=== PATIENT | female | born 1990 | race Caucasian/White ===

== ENCOUNTER 2024-07-25 09:13 | Outpatient (CLI) | payer OTHER, SELFPAY | END 2024-07-25 09:14 | disposition home or self-care (01) | PROVIDERS: Visit Provider Obstetrics & Gynecology | DX: O26.851 Spotting complicating pregnancy, first trimester (principal); Z67.10 Type A blood, Rh positive | CPT/HCPCS: 84702; 86850; 86900; 86901 ==

== ENCOUNTER 2024-07-25 11:17 | Outpatient (CLI) | payer OTHER, SELFPAY | END 2024-07-25 11:18 | disposition home or self-care (01) | LOC: US 11:20 | PROVIDERS: Visit Provider Obstetrics & Gynecology | DX: O20.9 Hemorrhage in early pregnancy, unspecified (principal); Z3A.01 Less than 8 weeks gestation of pregnancy | CPT/HCPCS: 76817 ==

== ENCOUNTER 2024-08-11 12:44 | Outpatient (CLI) | payer OTHER, SELFPAY ==
--- NOTE | 2024-08-11 13:00 | CRLHL7_ITS ---
For Patients: As a result of the Cures Act, medical imaging exams and procedure reports are released immediately into your electronic medical record. You may view this report before your referring provider. If you have questions, please contact your health care provider. OB ULTRASOUND INDICATION: Dating and viability. TECHNIQUE: Real time grayscale imaging of the fetus was performed. Transvaginal. LMP: 06/14/2024. TIFFANY by LMP: 03/21/2025. GA: 8 w, 2 d. Previous US: Yes 07/25/2024. CRL: 1.6 cm. 8 w 0 d. TIFFANY: 03/23/2025. FHR: 169 BPM. Gestational sac: 3 cm. Appears within normal limits. Yolk sac: 3.7 mm. Appears within normal limits. Right ovary: Within normal limits. 2.7 x 1.3 x 1.7 cm. Left ovary: Within normal limits. 3.2 x 2.2 x 24 cm. CL. IMPRESSION: 1. Single living intrauterine with sonographic gestational age 8 weeks 0 days and sonographic due date 03/23/2025. 2. Right-sided subchorionic hemorrhage measures 1.1 x 1.2 x 2.3 cm. Abiodun Wen M.D. Diagnostic Radiologist [email or web address]/Dictated by: Abiodun Wen MD @ 08/12/2024 9:03:00 AM (Electronically Signed)
== END 2024-08-11 12:45 | disposition home or self-care (01) ==
LOC: US 12:47
PROVIDERS: Visit Provider Advanced Practice Midwife
DX: Z34.91 Encounter for supervision of normal pregnancy, unspecified, first trimester (principal); O20.9 Hemorrhage in early pregnancy, unspecified; Z3A.08 8 weeks gestation of pregnancy
CPT/HCPCS: 76817; 83021; 86592; 86703; 86704; 86706; 86762; 86787; 86803; 86850; 86900; 86901; 87086; 87340; 87491; 87591

== ENCOUNTER 2024-08-11 14:30 | Outpatient (CLI) | payer OTHER, SELFPAY ==
[2024-08-11 20:41] LABS: Chlamydia DNA Amplified* NOT DETECTED (No Detected); GC DNA Amplified* NOT DETECTED (No Detected)
== END 2024-08-11 14:31 | disposition home or self-care (01) ==
PROVIDERS: Visit Provider Physician Assistant
DX: Z34.91 Encounter for supervision of normal pregnancy, unspecified, first trimester (principal); Z3A.08 8 weeks gestation of pregnancy
CPT/HCPCS: 83020; 83021; 85660; 86592; 86703; 86704; 86706; 86762; 86787; 86803; 86850; 86900; 86901; 87086; 87340; 87491; 87591

== ENCOUNTER 2024-10-07 08:57 | Outpatient (CLI) | payer OTHER, SELFPAY | END 2024-10-07 08:58 | disposition home or self-care (01) | LOC: FRMREF 09:00 | PROVIDERS: Visit Provider Midwife | DX: Z34.82 Encounter for supervision of other normal pregnancy, second trimester (principal) | CPT/HCPCS: 81511 ==

== ENCOUNTER 2024-11-01 13:05 | Outpatient (CLI) | payer OTHER, SELFPAY ==
--- NOTE | 2024-11-01 13:00 | CRLHL7_ITS ---
For Patients: As a result of the Century Cures Act, medical imaging exams and procedure reports are released immediately into your electronic medical record. You may view this report before your referring provider. If you have questions, please contact your health care provider. OBSTETRICAL ULTRASOUND ??? ANATOMY SURVEY, 11/01/2024 INDICATION: screen. anatomy survey. CLINICAL HISTORY: LMP: 05/26/2024 TIFFANY by LMP: 03/21/2025 Gestational age: 20 weeks 0 days TECHNIQUE: Real-time abbott-scale transabdominal imaging of the fetus was performed. PREVIOUS ULTRASOUND: 08/11/2024, 07/25/2024. FINDINGS: position: Multiple positions. Cervix: Visualized Technique: Transabdominal Length of closed cervix: 3.9 cm Placenta position: Posterior Placenta tip to internal os: 7.9 cm Umbilical cord: 3-vessel cord Placental insertion: Central Amniotic fluid: 4.3 cm SDP (greater than/equal to 2 to less than 8 cm) ANATOMY SURVEY: Observed Structures Cerebellum: Yes; 2.0 cm, 20 weeks 4 days Cisterna magna: Yes; 4.8 mm Nuchal fold: Yes; 5.0 mm Lateral ventricle: Yes; 6.2 mm CSP: Yes Midline falx: Yes Choroid plexus: Yes Spine: Yes Stomach: Yes Abdominal cord insert: Yes Urinary bladder: Yes Kidneys: Yes Diaphragm: Yes Nose/lips: Yes Orbital view: Yes Profile: Yes Upper extremities: Yes Lower extremities: Yes Hands: Yes Feet: Yes 4-chamber heart: Yes LVOT: Yes RVOT: Yes 3VV: Yes 3VTV: Yes BIOMETRY BPD: 4.4 cm, 19 weeks 3 days, 26% HC: 16.6 cm, 19 weeks 2 days, 14% AC: 16.4 cm, 21 weeks 3 days, 86% FL: 3.2 cm, 20 weeks 0 days, 43% FL/AC: 19.67% HC/AC ratio: 1.01 heart rate: 150 bpm age by this ultrasound: 20 weeks 0 days TIFFANY by this ultrasound: 03/20/2025 Estimated weight: 363 grams (0 pounds 13 ounces) Percentile by TIFFANY: 78% IMPRESSION: 1) Concordance of clinical and sonographic dating. 2) Normal anatomic survey. ABIODUN MORIN M.D. Diagnostic Radiologist [email or web address] Transcribed: 10:[address]/Dictated by: Abiodun Morin MD @ 11/02/2024 6:37:00 AM (Electronically Signed)
== END 2024-11-01 13:06 | disposition home or self-care (01) ==
LOC: US 13:05
PROVIDERS: Visit Provider Midwife
DX: Z34.92 Encounter for supervision of normal pregnancy, unspecified, second trimester (principal); Z3A.20 20 weeks gestation of pregnancy
CPT/HCPCS: 76805; 87086

== ENCOUNTER 2024-12-26 15:30 | Outpatient (CLI) | payer OTHER, SELFPAY | END 2024-12-26 15:31 | disposition home or self-care (01) | LOC: NFLDREF 12-28 17:27 | PROVIDERS: Visit Provider Advanced Practice Midwife | DX: Z34.82 Encounter for supervision of other normal pregnancy, second trimester (principal) | CPT/HCPCS: 86592 ==

== ENCOUNTER 2025-01-10 09:17 | Emergency (ER) | payer OTHER, SELFPAY ==
--- OUTSIDE RECORDS SUMMARY | 2024-04-14 04:30 | XMS_ITS ---
Author Organization [facility] e Address [address] [place] [address] Care Team Providers Care Oral Surgery Technician Name Role Phone None, No PCP Primary Care Provider Julianne Fink Unavailable [phone] REASON FOR VISIT LMP: 02/18 Encounters Encounter Location Date Provider Diagnosis [facility] [address] [place] [address] 04/14/2024 Julianne Burnette Plan Of Treatment No Information Progress Notes * Linnea KEYDOB: 3 (34 yo F)Acc No.[id number]:04/14/2024 Patient: Linnea OLIVAS Provider: Marine Burnette CNM :1990 A ge:33 Y S ex:Female Date:04/14/2024 Address:[address] [place], [place] [id number] Pcp:No PCP None Subjective: * Chief Complaints: * 1 . LMP: 02/18. * Medical History: Objective: * Vitals: Assessment: Plan: * Treatment: * Images: Billing Information: * Visit Code: * Procedure Codes: * Electronic signature of Chelsea Burnette CNM on 01/10/2025 at 10:22 AM CDT Sign off status: Pending * Provider: Marine Burnette CNM Date: 06/14/2023 Generated for Printi ng/Faxing/eTransmitting on: 0 01/10/2025 10:22 AM CDT
--- OUTSIDE RECORDS SUMMARY | 2024-04-14 05:00 | XMS_ITS ---
Author Organization [facility] [place] [facility] e Address [address] [place] [address] Care Team Providers Care Sheet Metal Welder Name Role Phone None, No PCP Primary Care Provider Julianne Fink Unavailable [phone] Encounters Encounter Location Date Provider Diagnosis [facility] [address] [place] [address] 04/14/2024 Julianne Burnette Plan Of Treatment No Information Progress Notes * Linnea KEYDOB: 3 (34 yo F)Acc No.[id number]:04/14/2024 Patient: Linnea OLIVAS Provider: Marine Burnette CNM :1990 A ge:33 Y S ex:Female Date:04/14/2024 Address:[address] [place], [place] [id number] Pcp:No PCP None Subjective: * Chief Complaints: * * Medical History: Objective: * Vitals: Assessment: Plan: * Treatment: Care Plan: * Problems: * Images: Billing Information: * Visit Code: * Procedure Codes: * Electronic signature of Chelsea Burnette CNM on 01/10/2025 at 10:22 AM CDT Sign off status: Pending * Provider: Marine Burnette CNM Date: 06/14/2023 Generated for Igori ng/Faxing/eTransmitting on: 0 01/10/2025 10:22 AM CDT
--- OUTSIDE RECORDS SUMMARY | 2024-04-14 05:30 | XMS_ITS ---
Author Organization [facility] e Address [address] [place] [address] Care Team Providers Care Lens Shaper Grinder Name Role Phone None, No PCP Primary Care Provider Julianne Fink Unavailable [phone] REASON FOR VISIT LMP: 02/18 Encounters Encounter Location Date Provider Diagnosis [facility] [address] [place] [address] 04/14/2024 Julianne Burnette Plan Of Treatment No Information Progress Notes * Linnea KEYDOB: 3 (34 yo F)Acc No.[id number]:04/14/2024 Patient: Linnea OLIVAS Provider: Marine Burnette CNM :1990 A ge:33 Y S ex:Female Date:04/14/2024 Address:[address] [place], [place] [phone] Pcp:No PCP None Subjective: * Chief Complaints: * 1 . LMP: 02/18. * Medical History: Objective: * Vitals: Assessment: Plan: * Treatment: * Images: Billing Information: * Visit Code: * Procedure Codes: * Electronic signature of Chelsea Burnette CNM on 01/10/2025 at 10:21 AM CDT Sign off status: Pending * Provider: Marine Burnette CNM Date: 06/14/2023 Generated for Printi ng/Faxing/eTransmitting on: 0 01/10/2025 10:21 AM CDT
[2025-01-10 09:32] VITALS: BP 119/73; PULSE 109; RESP 18; TEMP 36.4; O2SAT 97; BMI 31.5
--- NOTE | 2025-01-10 10:00 | ED.GENADULT ---
HPI - General Adult General Chief complaint: Shortness of Breath/Dyspnea Stated complaint: 30weeks - OB sent her to ER Time Seen by Provider: 01/10/25 10:00 History of Present Illness HPI narrative: patient is 30 weeks PG and yesterday feeling SOB and noticed the lips to be pale and concerned thought lips looked blue. patient continues to feel sob. cough congestion, erickson , body aches. tested + COVID last night home test. has had stomach cramps like diarrhea. last episode was Thursday night. 34-year-old woman presenting to the emergency department apparently diagnosed with COVID. This was a home test which was immediately positive she reports. I was last night. Four days ago did have some stomach cramps with a lot of diarrhea. Has had some intermittent cramping since. Yesterday white after bath remaining in noting a little bit of blood. She is not sure if the cramping is consistent with what ever she had going on or whether that is related to the . She is feeling baby move. Started feeling more short of breath yesterday and noted her lips to be little blue or alternately pale. Is had some head congestion as well. Been treating with recommended loratadine. Body aches as well. No measured fever. Called in to triage line and recommended to be assessed for oxygen level and to receive medication for COVID Related Data Home Medications ?Medication ?Instructions ?Recorded ?Confirmed [id number]-[id number] 3 fatty no.1 27 1 cap PO DAILY 08/11/24 01/11/25 mg-1 mg-300 mg capsule choline 250 mg tablet 265 mg PO QDAY 08/11/24 01/11/25 doxylamine succinate 25 mg tablet 25 mg PO QHS PRN 08/11/24 01/11/25 (Unisom (doxylamine)) magnesium 200 mg tablet 200 mg PO QDAY 09/07/24 01/11/25 famotidine 20 mg tablet (Pepcid) 20 mg PO QDAY 11/30/24 01/11/25 acetaminophen 500 mg tablet 500 mg PO Q6H PRN 01/11/25 01/11/25 (Tylenol Extra Strength) Previous Rx's ?Medication ?Instructions ?Recorded nirmatrelvir 300 mg (150 mg See Rx Instructions PO .COMPLEX #6 01/10/25 x2)-ritonavir 100 mg tablet,dose tabs pack (Paxlovid) Allergies Allergy/AdvReac Type Severity Reaction Status Date / Time No Known Drug Allergies Allergy Verified 01/11/25 15:18 Review of Systems Status of ROS: Reports: 6 or more systems reviewed and unremarkable except as noted in History and below [facility] Medical History Rash ?R21 - Rash and other nonspecific skin eruption (ICD-10) Anemia ?D64.9 - Anemia, unspecified (ICD-10) Migraines ?G43.909 - Migraine, unspecified, not intractable, without status migrainosus (ICD-10) Family History Other Breast cancer Chronic mental illness Diabetes Heart disease Ovarian cancer Thyroid disease Social History Narrative: SOCIAL HISTORY: 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 Marital status: . Oriental Orthodox/cultural needs: no. Chemical or radiation exposure: no. Pre- tobacco use: no. Pre- alcohol use: no. Current tobacco use: no. Current alcohol use: no. Recreational drug use: no. Dietary restrictions: no. Blood transfusion acceptable in an emergency: yes. PSYCHOSOCIAL HISTORY: History of depression or currently depressed: Denies. Current or past physical, emotional, or sexual mistreatment: Denies. Problems that will make it hard to make it to appointments: Denies. What is your current living situation?: I presently have a place to live In the past 12 months, utilities in danger of being shut off: no In past 12 months, lack of transportation kept you from medical appts, meetings, work, or getting things needed for daily living: no In the past 12 mos, have been you worried that your food would run out before you had money to buy more?: never true In the past 12 mos, the food you bought just didn't last and you didn't have money to buy more?: never true Smoking Status: Never smoker How often do you have a drink containing alcohol: never How often do you have six or more drinks on one occasion: Never AUDIT-C Alcohol total score: 0 Non-prescribed substance use: denies use How often does anyone, including family, friends and others, physically hurt you: never How often does anyone, including family, friends and others, insult or talk down to you: never How often does anyone, including family, friends and others, threaten you with harm: never How often does anyone, including family, friends and others, scream or curse at you: never Exam Narrative: Exam Narrative: Pleasant. NAD. Sounds congested. Appears tired. No facial swelling or erythema. Lungs are clear. Heart is in elevated rate and regular rhythm. Abdomen is soft appropriately gravid and nontender; atrial uncomfortable to palpation but pelvis. Extremities are well perfused. Lips are normal color at this point. Const: Vital Signs, click to edit/add: Vital Signs - 24 hr 01/10/25 09:32 01/10/25 10:12 01/10/25 10:12 Temperature 97.5 F L Pulse Rate [Pulse Oximeter] 109 H 105 H Respiratory Rate 18 Blood Pressure [Ri ght Upper Arm] 119/73 Pulse Oximetry 97 98 98 Oxygen Delivery Me thod Room Air Room Air 01/10/25 10:20 01/10/25 12:07 Temperature Pulse Rate [Pulse Oximeter] 99 88 Respiratory Rate 20 Blood Pressure [Ri ght Upper Arm] 122/96 H Pulse Oximetry 98 Oxygen Delivery Me thod Room Air Documenting provider has reviewed patient's vital signs: yes Course Vital Signs Vital signs: Initial Vital Signs Temperature 97.5 F L 01/10/25 09:32 Temperature Source Temporal Artery Scan 01/10/25 09:32 Pulse Rate 109 H 01/10/25 09:32 Respiratory Rate 18 01/10/25 09:32 Blood Pressure 119/73 01/10/25 09:32 Blood Pressure Mean 88 01/10/25 09:32 Blood Pressure Position Sitting 01/10/25 09:32 Pulse Oximetry 97 01/10/25 09:32 Oxygen Delivery Method Room Air 01/10/25 09:32 Vital Signs Temperature 97.5 F L 01/10/25 09:32 Pulse Rate 109 H 01/10/25 09:32 Respiratory Rate 18 01/10/25 09:32 Blood Pressure 119/73 01/10/25 09:32 Pulse Oximetry 97 01/10/25 09:32 Oxygen Delivery Method Room Air 01/10/25 09:32 Temperature 97.5 F L 01/10/25 09:32 Pulse Rate 88 08/19/25 12:07 Respiratory Rate 20 01/10/25 12:07 Blood Pressure 122/96 H 01/10/25 12:07 Pulse Oximetry 98 01/10/25 12:07 Oxygen Delivery Method Room Air 01/10/25 12:07 Medical Decision Making MDM Narrative Medical decision making narrative: Does not sound as though we need to re screen COVID. She is quite clear in her certain diagnosis. There has also been a flare in the community. Obstetrics would like to do a nonstress testing will be arriving to do so. Will continue to monitor oximetry. Anticipate treatment with Paxlovid. No further workup other than maybe a urinalysis I think at this time. Reassuring. Nonstress test Urinalysis was pending time departure from the emergency department. It did show what looked to be blood. I did discuss this with Linnea after she has left the emergency department. This looks to be more inflammatory in presentation than actually infectious. Micro with 2-5 white cells but greater than 100 red cells. Aminata does believe that this is definitely from the urine and not vaginal/uterine. There has been no recent intercourse. Did prescribe Paxlovid particularly as . One does wonder if this could be related to COVID. Discussed that might benefit from blood draw including basic and CBC at least for a baseline. She does have close follow-up tomorrow. Recommending quarantine/masking for at least 10 days from 1st day of infection. See patient discharge plan for further discussion Will be sending in a prescription of Paxlovid for you to the pharmacy. Be seen for increasing and persistent shortness of breath, increasing fever, intractable vomiting. Focus on hydration as usual. I will call you if your urinalysis requires discussion. Medical Records Medical records reviewed: Yes I reviewed the patient's medical records Lab Data Lab results reviewed: Yes I reviewed the patient's lab results Labs: Lab Results 01/10/25 Range/Units Unknown Urine Color Brown A (Yellow) Urine Appearance Cloudy A (Clear) Urine pH 7.0 (5.0-8.5) Ur Specific Concord 1.025 (1.000-1.030) Urine Protein 2+ A (Negative) Urine Glucose (UA) Negative (Negative) Urine Ketones Trace A (Negative) Urine Blood 3+ A (Negative) Urine Nitrite Negative (Negative) Urine Bilirubin Negative (Negative) Urine Urobilinogen 0.2 (0.2-1.0) Ur Leukocyte Esterase Negative (Negative) Urine RBC >100 A (0-2) Urine WBC 2-5 (0-5) Ur Squamous Epith Cells Few (None-Few) Urine Bacteria Few A (None) Urine Mucus Few A (None) Discharge Plan Discharge Clinical Impression: COVID, Abdominal cramping Patient Disposition: Home, Self-Care Condition: Stable Additional Instructions: Will be sending in a prescription of Paxlovid for you to the pharmacy. Be seen for increasing and persistent shortness of breath, increasing fever, intractable vomiting. Focus on hydration as usual. I will call you if your urinalysis requires discussion. Prescriptions: New Paxlovid 300 mg (150 mg x 2)-100 mg tablets,dose pack See Rx Instructions PO .COMPLEX Qty: 6 0RF Rx Instructions: take TWO 150 mg tablets of nirmatrelvir with ONE 100 mg tablet of ritonavir twice daily for 5 days No Action magnesium 200 mg tablet 200 mg PO QDAY SZK-evvp-QN-omega 3 fatty no.1 27-1-300 mg capsule 1 cap PO DAILY choline 250 mg tablet 265 mg PO QDAY Unisom (doxylamine) 25 mg tablet 25 mg PO QHS PRN famotidine [Pepcid] 20 mg tablet 20 mg PO QDAY acetaminophen [Tylenol Extra Strength] 500 mg tablet 500 mg PO Q6H PRN Follow Up/Referrals: Provider,Not a Local [Primary Care Provider, Family Practice] Stand Alone Forms: [employer] Info Instructions
[2025-01-10 10:12] VITALS: PULSE 105; O2SAT 98
[2025-01-10 10:20] VITALS: PULSE 99
--- OUTSIDE RECORDS SUMMARY | 2025-01-10 10:22 | XMS_ITS | Patient Health Record ---
Author Organization [facility] e Address [address] [place] [address] Care Team Providers Care Transit Manager Name Role Phone None, No PCP Primary Care Provider Radha Ag Unavailable [phone] Julianne Burnette Unavailable [phone] Reason For Referral No Information Plan Of Treatment No Information Insurance Providers Payer Name Payer Address Payer Phone Subscriber Number Group Number Insured Name Patient Relationship to Insured Coverage Start Date Coverage End Date UMR (INS BILL) [address] [address] [place] [address] [id number] Linnea Key Self - patient is the insured
--- OUTSIDE RECORDS SUMMARY | 2025-01-10 10:22 | XMS_ITS | Encounter Summary ---
Author Organization [facility] Address [address] [place] [address] Care Team Providers Care Telegraph Service Clerk Name Role Phone No Ref-Primary, Physician Primary Care Provider Abiodun Arambula MD Unavailable [phone] Florentin Ochoa MD Unavailable [phone] Encounter Details Date Type Department Care Team (Late st Contact Info) Description 04/19/2024 [facility] Medical Advice [facility] [place] [address] [place] [address] Abiodun Arambula MD [address] [place], [place] [id number] Social History Tobacco Use Types Packs/Day Years Used Date Smoking Tobacco: Never Smokeless Tobacco: Never Alcohol Use Standard Drinks/Week Comments Yes 0 (1 standard drink = 0.6 oz pur e alcohol) Adolescent Education Answer Date Record ed Getting School Help Needed Not on file 10/22 Comments No Sex and Gender Information Value Date Recorded Sex Assigned at Not on file Legal Sex Female 8:08 PM 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 Re: missed ab. Chaparrita Moon RN CLE CALIBRATION ENGINEER documented in this encounter Plan of Treatment Not on file documented as of this encounter Visit Diagnoses Not on filedocumented in this encounter Care Teams Telegraph Service Clerk Relationship Specialty Start Date End Date No Ref-Primary, Physician PCP - General 10/23/23 Abiodun Arambula MD [address] [address] Assigned OBGYN Provider 04/16/24 Florentin Ochoa MD [address] [address] technicians and trades workers 07/22/24 documented as of this encounter
--- OUTSIDE RECORDS SUMMARY | 2025-01-10 10:22 | XMS_ITS | Encounter Summary ---
Author Organization [facility] Address [address], [place] [address] Care Team Providers Care Statement Clerk Name Role Phone Kourtney Kowalski MD Primary Care Provider [phone] Encounter Details Date Type Department Care Team (Late st Contact Info) Description 08/01/2015 Correspondence [address] [place] [address] Kourtney Kowalski MD [address] [place] [address] [place] [address] FMLA Social History Tobacco Use Types Packs/Day Years Used Date Smoking Tobacco: Never Smokeless Tobacco: Never Comments:mother is a smoker Alcohol Use Standard Drinks/Week Comments Yes 0 (1 standard drink = 0.6 oz pure alcohol) occ - one drink about twice monthly. 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
--- OUTSIDE RECORDS SUMMARY | 2025-01-10 10:22 | XMS_ITS | Encounter Summary ---
Author Organization [facility] Address [address] [place] [address] Care Team Providers Care Food Products Sales Representative Name Role Phone Kourtney Kowalski MD Primary Care Provider [phone] Encounter Details Date Type Department Care Team (Late st Contact Info) Description 10/18/2015 Correspondence External to External, [place] [address] RX DRUG REQUEST DENIED Social History Tobacco Use Types Packs/Day Years [...] on filedocumented in this encounter Care Teams Food Products Sales Representative Relationship Specialty Start Date End Date Kourtney Kowalski MD [address] [place] [address] [place] [address] PCP - General Family Practice 08/31/14 documented as of this encounter
--- OUTSIDE RECORDS SUMMARY | 2025-01-10 10:22 | XMS_ITS | Encounter Summary ---
Author Organization [employer] Address [address] [place] [address] Care Team Providers Care Rice Field Worker Name Role Phone Kourtney Kowalski MD Primary Care Provider [phone] Encounter Details Date Type Department Care Team (Late st Contact Info) Description 08/18/2016 Correspondence None No Primary/Referring, Phy CHIROPRACTIC PATIENT LIAB NOTIFICATION AND AGRMNT Social History Tobacco Use Types Packs/Day Years Used Date Smoking Tobacco: Never Smokeless Tobacco: Never Comments:mother is a smoker Alcohol Use Standard Drinks/Week Comments Yes 0 (1 standard drink = 0.6 oz pure alcohol) occ - one drink about twice monthly. Comments No Sex and Gender Information Value [...] on filedocumented in this encounter Care Teams Rice Field Worker Relationship Specialty Start Date End Date Kourtney Kowalski MD [address] [place] [address] [place] [address] PCP - General Family Practice 08/31/14 documented as of this encounter
--- OUTSIDE RECORDS SUMMARY | 2025-01-10 10:22 | XMS_ITS | Encounter Summary ---
Author Organization [facility] Address [address] [place] [address] Care Team Providers Care Bariatric Nurse Name Role Phone Kourtney Kowalski MD Primary Care Provider [phone] Encounter Details Date Type Department Care Team (Late st Contact Info) Description 04/17/2015 Emergency Room External to [facility], Provider HEMATEMESIS Social History Tobacco Use Types Packs/Day Years [...] on filedocumented in this encounter Care Teams Bariatric Nurse Relationship Specialty Start Date End Date Kourtney Kowalski MD [address] [place] [address] [place] [id number] PCP - General Family Practice 08/31/14 documented as of this encounter
--- OUTSIDE RECORDS SUMMARY | 2025-01-10 10:22 | XMS_ITS | Clinical Summary ---
Author Organization [facility] Address [address] [place] [address] Care Team Providers Care Brooch Maker Novelty Name Role Phone No Ref-Primary, Physician Primary Care Provider Abiodun Arambula MD Unavailable [phone] Florentin Ochoa MD Unavailable [phone] Allergies No known active allergies Medications SUMAtriptan (IMITREX) 25 MG tablet Take 25 mg by mouth 03/17/2022 Active misoprostol (CYTOTEC) 200 MCG tabletIndicatio ns:Threatened Take 400 mcg cytotec every 4 hours for a total of 4 doses 8 tablet 04/10/2024 Active HYDROcodone-ashlee taminophen (NORCO) 5-325 MG tablet Take 1-2 tablets by mouth every 6 hours as needed for pain. 15 tablet 04/21/2024 Active ondansetron (ZOFRAN ODT) 4 MG ODT tab Take 1 tablet (4 mg) by mouth every 8 hours as needed for nausea. 10 tablet 04/21/2024 Active Active Problems Problem Noted Date Diagnosed Date Suicidal ideation 11/03/2019 Family History Relation Status Comments Father Alive Mother Alive Social History Tobacco Use Types Packs/Day Years Used Date Smoking Tobacco: Never Smokeless Tobacco: Never Tobacco Cessation:Counseling Given: Not Answered Alcohol Use Standard Drinks/Week Comments Yes 0 (1 standard drink = 0.6 oz pur e alcohol) Adolescent Education Answer Date Record ed Getting School Help Needed Not on file 10/22 Comments No Sex and Gender Information Value Date Recorded Sex Assigned at Not on file Legal Sex Female 8:08 PM VINYL INSTALLER Gender Identity Not on file Sexual Orientation Not on file Last Filed Vital Signs Vital Sign Reading Time Taken Comments Blood Pressure 124/74 04/21/2024 7:45 PM VINYL INSTALLER Pulse 71 04/21/2024 7:45 PM VINYL INSTALLER Temperature 36.3 C (97.4 F) 04/21/2024 6:39 PM VINYL INSTALLER Respiratory Rate 18 04/21/2024 6:39 PM VINYL INSTALLER Oxygen Saturation 99% 04/21/2024 7:45 PM VINYL INSTALLER Inhaled Oxygen Concentration - - Weight 69.4 kg (153 lb) 04/07/2024 2:22 PM VINYL INSTALLER Height 157.5 cm (5' 2) 04/07/2024 2:22 PM VINYL INSTALLER Body Mass Index 27.98 04/07/2024 2:22 PM VINYL INSTALLER Plan of Treatment Health Maintenance Due Date Last Done Comments ADVANCE CARE PLANNING 1990 ANNUAL REVIEW OF HM ORDERS 1990 YEARLY PREVENTIVE VISIT 06/27/2023 06/27/2022 COVID-19 VACCINE ( season) 2024 06/27/2022, 10/24/2020, 10/03/2020 PHQ-2 (once per calendar year) 2024 INFLUENZA VACCINE (#1) 2025 , 04/08/2021, 04/20/2015, Additional history exists PAP 06/27/2025 06/27/2022, 07/2022, 09/05/2016 DTAP/TDAP/TD VACCINE (10 - Td or Tdap) 04/08/2031 04/08/2021, 07/11/2009, 11/10/2008, Additional history exists ZOSTER VACCINE (1 of 2) 2042 MENINGITIS VACCINE Aged Out 10/01/2004, 10/01/2004 No longer eligible based on patient's age to complete this topic HPV VACCINE Completed 11/10/2008, 08/2007, 06/17/2007 HIV SCREENING Completed 05/16/2015, 01/17/2009 HEPATITIS B VACCINE Completed 07/30/2015, 11/02/2014, 10/01/2012, Additional history exists HEPATITIS C SCREENING Completed 06/27/2022 PNEUMOCOCCAL VACCINE: PEDIATRICS (0 to 5 YEARS) AND AT-RISK PATIENTS (6 to 49 YEARS) Aged Out No longer eligible based on patient's age to complete this topic Insurance [facility] CHO[facility] CHO[facility] CHO[facility] Advance Directives For more information, please contact: [phone] * Full Code (Latest Code Status on File) Date Activated Date Inactivated Comments 11/03/2019 1:52 AM 11/07/2019 4:08 PM Question Answer Comments Code status determined by: Discussion with kobie nt/legal decision maker Care Teams Brooch Maker Novelty Relationship Specialty Start Date End Date No Ref-Primary, Physician PCP - General 10/23/23 Abiodun Arambula MD [address] [place] [address] Assigned OBGYN Provider 04/16/24 Florentin Ochoa MD [address] [place] [address] moss picker 07/22/24
--- OUTSIDE RECORDS SUMMARY | 2025-01-10 10:22 | XMS_ITS | Encounter Summary ---
Author Organization [employer] Address [address] [place] [address] Care Team Providers Care Client Services Analyst Name Role Phone Kourtney Kowalski MD Primary Care Provider [phone] Encounter Details Date Type Department Care Team (Late st Contact Info) Description 05/02/2015 Correspondence [address] [place] [address] Nedra Patel, TREE TRIMMER HELPER, TECHNICAL INSTRUCTOR [address] [place] [address] [place] [address] FMLA Social History Tobacco Use Types Packs/Day [...] on filedocumented in this encounter Care Teams Client Services Analyst Relationship Specialty Start Date End Date Kourtney Kowalski MD [address] [place] [address] [place] [address] PCP - General Family Practice 08/31/14 documented as of this encounter
--- OUTSIDE RECORDS SUMMARY | 2025-01-10 10:22 | XMS_ITS | Encounter Summary ---
Author Organization [facility] Address [address] [place] [address] Care Team Providers Care Aquatic Centre Manager Name Role Phone No Ref-Primary, Physician Primary Care Provider Abiodun Arambula MD Unavailable [phone] Florentin Ochoa MD Unavailable [phone] Reason for Visit * Reason Onset Date Comments Results 04/08/2024 Encounter Details Date Type Department Care Team (Late st Contact Info) Description 04/08/2024 [facility] Advice [facility] [address] [place] [address] Abiodun Arambula MD [address] [place] [address] Results Social History Tobacco Use Types Packs/Day Years [...] on file Legal Sex Female 8:08 PM POWER TRANSFORMER REPAIRER Gender Identity Not on file Sexual Orientation Not on file documented as of this encounter Miscellaneous Notes * Telephone Encounter - Adamaris Ruth RN - 04/18/2024 8:[address] Abiodun Arambula not in today. This pt has been following a MAB with ultrasound and wants to proceed with taking the cytotec. Per his result note she can proceed. TERRY BalbuenaN [place] napper runner R TRANSFORMER REPAIRER R TRANSFORMER REPAIRER * Telephone Encounter - Darline Moon RN - 04/11/2024 8:08 AM CST Pt advised via my chart. S. TERRY Moon R TRANSFORMER REPAIRER * Telephone Encounter - Darline Moon RN - 04/11/2024 8:07 AM CST Images from the original note were not included. Abiodun Arambula MD [facility] Lab Engineer Triage; Adamaris Ruth RNYe (7:11 AM) DB See other note. Orders have been placed for cytotec and a follow up US this Thursday. Thanks R TRANSFORMER REPAIRER * Telephone Encounter - Adamaris Ruth RN - 04/08/2024 8:11 AM CST Pt desires medication to induce miscarriage if she doesn't bleed on her own next week. Okay to send? Or do you prefer she have any further U/s or HCG? She is fine with or without doing another one. Adamaris Amin RN BSN [place] napper runner R TRANSFORMER REPAIRER documented in this encounter Plan of Treatment Not on file documented as of this encounter Visit Diagnoses Not on filedocumented in this encounter Care Teams Aquatic Centre Manager Relationship Specialty Start Date End Date No Ref-Primary, Physician PCP - General 10/23/23 Abiodun Arambula MD [address] [address] Assigned OBGYN Provider 04/16/24 Florentin Ochoa MD [address] [facility] [address] [place] [address] operating table assembler 07/22/24 documented as of this encounter
--- OUTSIDE RECORDS SUMMARY | 2025-01-10 10:23 | XMS_ITS | Clinical Summary ---
Author Organization [facility] Address [address], [place] [address] Care Team Providers Care Office Machine Servicer Apprentice Name Role Phone Kourtney Kowalski MD Primary Care Provider [phone] Source Comments You are receiving this document as you are listed as the primary care provider,follow-up provider, or the patient has been referred to you for consultation.This is in compliance with the Medicare and[facility] EHR Incentive Program,which states Providers who transition their patient to another setting of careor provider of care or refers their patient to another provider of care shouldprovide summary care record for each transition of care or referral. Simply Hired Allergies No known active allergies Medications lamoTRIgine (LAMICTAL) 25 MG tablet Take 2 Tabs by mouth two times a day. 120 Tab 0 6 Active Additional Information Patient not taking.Reported on 10/24/2020 buPROPion (WELLBUTRIN) 100 MG tablet Take 100 mg by mouth daily. Active fluticasone (FLONASE) 50 MCG/ACT nasal solution Place 2 Sprays into both nostrils daily. 16 g 0 7 Active Additional Information Patient not taking.Reported on 05/13/2017 venlafaxine (EFFEXOR) 37.5 MG tablet Take 37.5 mg by mouth three times a day. Active ofloxacin (OCUFLOX) 0.3 % eye drop solution 1 drop every 30 min during daytime. Then every 4-6 hours at night for 2 days, then 1 drop q hr for 4 more days. 10 mL 7 Active Additional Information Patient not taking.Reported on 05/14/2017 ciprofloxacin (CILOXAN) 0.3 % eye drop solution 1 drop every 30 min during daytime. Then every 4-6 hours at night for 2 days, then 1 drop q hr for 4 more days. 5 mL 7 Active Additional Information Patient not taking.Reported on 10/24/2020 moxifloxacin (VIGAMOX) 0.5 % eye drop solution Place 1 Drop into right eye 4 times a day. 3 mL 1 1 Active Additional Information Patient not taking.Reported on 07/15/2021 tobramycin-dexa methasone (TOBRADEX) 0.3-0.1 % eye drop suspension Place 1 Drop into both eyes 4 times a day. 5 mL 2 Active tiZANidine (ZANAFLEX) 4 MG tabletIndicatio ns:Acute right-sided thoracic back pain (HRC),Mid back pain Take 1 Tablet (4 mg) by mouth at bedtime as needed (muscle spasm or pain). 30 Tablet 4 Active diclofenac (VOLTAREN) 50 MG enteric coated tabletIndicatio ns:Acute right-sided thoracic back pain (HRC),Mid back pain Take 1 Tablet (50 mg) by mouth two times daily as needed. Take with food. 30 Tablet 4 Active Active Problems Problem Noted Date Diagnosed Date IUD (intrauterine device) in place 04/10/2016 Overview (03/17/2017): Mirena IUD removed and Depo started on 03/17/17 Screening for cervical cancer 05/24/2015 Overview (01/14/2017): 2014 LSIL cannot r/o HSIL 06/01/15 Colposcopy---> FAREED-1 and koilocytosis, ECC within normal limits. 2016 NILM, HPV negative 25 y.o. 10/06/16 Colposcopy---> normal biopsy Plan repeat pap with colpo in 1 year ; Pap test history Depression with anxiety 10/01/2012 Resolved Problems Problem Noted Date Diagnosed Date Resolved Date Encounter for supervision of other normal 05/15/2015 04/03/2016 Overview (05/16/2015): Unplanned . New relationship for two months. FOB is Carmelo and is supportive. Alcohol use in early . Stopped when found out . Declined mother baby program. Discussed any amount of alcohol is unsafe in . PHQ9 12. Is in [facility]. Seeing a therapist monthly. Next appointment 06/01/15. Encouraged to follow Assessment & Plan (05/16/2015 10:06 AM EMERGENCY SPECIALIST): CNM at [employer]. Call model discussed ENROLLED IN DEPRESSION CARE MANAGEMENT 09/01/2014 07/27/2015 Contraceptive management 09/15/2011 Immunizations Immunization Administration Dates Next Due 4vHPV (Gardasil) 11/10/2008,12/27/2007, 8 Flu Vac (3+ yrs) 06/16/2011,04/16/2010 [id number] 04/04/2009 HepA, Unspecified Formulation 11/10/2008, 008 HepB Adult (Engerix-B, 20+ y rs, 3 dose series) 07/30/2015,11/02/2014 HepB Ped/Adol (0-18 yrs) 10/01/2012 Influenza IIV4 (Quadrivalent ) 0.5mL (67479) 04/20/2015,03/11/2013 MCV4 (Menactra) 10/01/2004 MMR 02/01/2004 Td 10/01/2004 Tdap 07/11/2009,11/10/2008 Varicella 10/08/1999(Deferred: Immune by Princess purvis) Family History Medical History Relation Name Comments Anxiety Father Depression Father Thyroid Disorder Mother ADHD Brother 3 Glaucoma Maternal Grandfather Cancer, Breast Paternal Grandmother age 5 0s Relation Name Status Comments Father Alive Mother Alive Brother 1 Alive full Brother 2 Alive half bro Brother 3 Daughter Alive Maternal Grandfather Alive Maternal Grandmother Alive Paternal Grandfather Alive Paternal Grandmother (Age 55) br east cancer Sister 1 Alive full Sister 2 Alive full Sister 3 Alive half sis Sister 4 Alive half sis Sister 5 Alive half sis Social History Tobacco Use Types Packs/Day Years [...] 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 on file Not on file Not on file Last Filed Vital Signs Vital Sign Reading Time Taken Comments Blood Pressure 96/72 05/13/2017 5:18 PM EMERGENCY SPECIALIST Pulse 96 05/13/2017 5:18 PM EMERGENCY SPECIALIST Temperature 36.6 C (97.8 F) 08/12/2023 5:48 PM CDT Respiratory Rate 16 05/13/2017 5:18 PM EMERGENCY SPECIALIST Oxygen Saturation 100% 04/13/2016 12:23 PM EMERGENCY SPECIALIST Inhaled Oxygen Concentration - - Weight 63.5 kg (140 lb) 08/12/2023 5:48 PM CDT Height 157.5 cm (5' 2) 08/12/2023 5:48 PM CDT Body Mass Index 25.61 08/12/2023 5:48 PM CDT Plan of Treatment Health Maintenance Due Date Last Done Comments Hep C Screening (Preventive Services) 1992 Adult Preventive Visit 2010 Cervical Cancer Screening 09/05/2017 09/05/2016, COVID-19 Vaccine ( season) 2024 10/24/2020, 10/03/2020 Influenza Vaccine (#1) 2025 , 04/08/2021, 04/20/2015, Additional history exists DTaP/Tdap/Td Vaccine (9 - Tdap) 04/08/2031 04/08/2021, 07/11/2009, 11/10/2008, Additional history exists Zoster/Shingles Vaccine (1 of 2) 2042 Hib Vaccine Completed 02/07/1994, 03/26, 02/14/1993, Additional history exists MCV4 Vaccine Aged Out 10/01/2004 No longer eligi ble based on patient's age to complete this topic HPV Vaccine Completed 11/10/2008, 08/2007, 06/17/2007 HepA Vaccine Completed 11/10/2008, 12/27/2007 HIV Screening (Preventive Services) Completed 05/16/2015, 11/02/2014, 01/17/2009 HepB Vaccine Completed 07/30/2015, 10/23, 10/01/2012 IPV (Polio) Vaccine Aged Out No longe r eligible based on patient's age to complete this topic Meningococcal B Vaccine Aged Out No l onger eligible based on patient's age to complete this topic Pneumococcal Vaccine Aged Out No long er eligible based on patient's age to complete this topic Procedures Procedure Name Priority Date/Time Associated Diagnosis Comments PAP TEST, ROUTINE Routine 09/05/2016 9:1 2 AM CDT Pap smear for cervical cancer screening HIV ANTIBODY Routine 05/16/2015 9:10 AM EMERGENCY SPECIALIST Encounter for supervision of other normal in first trimester from Last 3 Months or Most Recently Relevant to Health Maintenance Results * Pap Test, Routine (09/05/2016 9:12 AM CDT) Cytology, Pap (NOTE) Machine Cleaner Cytology Report Patient Name: BAUTISTA KEY Taken: 09/05/2016 Received: 09/05/2016 Reported: 09/16/2016 Physician(s): JESUS CARBONE Source of Specimen Pap Test, Routine Cervical/Endocervi herber: Specimen Adequacy Satisfactory for evaluation. Endocervical component present. Final Cytologic Interpretation/Res ult NEGATIVE FOR INTRAEPITHELIAL LESION OR MALIGNANCY (NILM) Other Cytologic Findings Shift in rodney suggestive of bacterial vaginosis *Electronically Signed Out By ROMEO Knowles (ASCP)* Shannan MARS(ASCP) Lorenza Wang [facility] (ASCP) Pap Smear History Date of Last Menstrual Period: Injection Microscopic Description Microscopic examination is performed. [facility] Department of Pathology [address] [place] [address] [facility] 09/05/2016 9:12 AM CDT 09/05/2016 12:00 PM CDT us Jesus Carbone MD LAB_1 Final Resu lt [facility] [phone] * HIV ANTIBODY (05/16/2015 9:10 AM EMERGENCY SPECIALIST) HIV 1/2 Antibody Negative (Non Reactive) NEGNR [facility] Comment: HIV Antibody testing may be falsely negative during the window period. If the patient has had recent exposure (within the past four weeks), consider contacting Infectious Diseases for clarification. 05/16/2015 9:10 AM EMERGENCY SPECIALIST 05/16/2015 9:13 AM EMERGENCY SPECIALIST Narrative [facility] - 05/17/2015 9:51 AM EMERGENCY SPECIALIST Performed at [facility], [address] [place] [address] Carisa Bautista APRN, CNM LAB_1 Final Res ult Performing Organization Address City/[facility] Co de Phone Number [facility] [phone] from Last 3 Months or Most Recently Relevant to Health Maintenance Insurance [employer] Care Teams Office Machine Servicer Apprentice Relationship Specialty Start [place] [address] [place] [address] [place] [address] PCP - General Family Practice 08/31/14
--- NOTE | 2025-01-10 11:45 | PC.OBNST ---
NST Note NST Note Start: 01/10/25 10:46 Freq: ONCE Status: Active Protocol: Document 01/10/25 11:43 CARRIE (Rec: 01/10/25 11:45 CARRIE [id number]) NST Note 4 Para (# of births) 1 EDC 03/21/25 Gestational Age In 30 Weeks & 0 Days Weeks & Days Patient Presented Contractions/cramping,Other with Complaint(s) of Other Complaints Covid positive Reactive Yes Appropriate for Yes Gestational Age TERRY Burch RN Date 01/10/25 Reactive Yes Appropriate for Yes Gestational Age TERRY Mcintosh CNM Date 01/10/25 OB NST charge Yes Complete NST Note Yes via Write Note The provider's electronic signature indicates the NST is reactive/appropriate for gestational age. *Note to provider: If an addendum is required, open the patient's chart and click on the note under the Nurse/Allied Health tab.
[2025-01-10 12:07] VITALS: BP 122/96; PULSE 88; RESP 20; O2SAT 98
[2025-01-10 12:31] LABS: Appearance Urine Cloudy (Clear)
== END 2025-01-10 12:07 | disposition home or self-care (01) ==
PROVIDERS: Emergency Provider Family Medicine
DX: U07.1 COVID-19 (principal); R10.9 Unspecified abdominal pain; Z3A.31 31 weeks gestation of pregnancy
CPT/HCPCS: 59025; 81001; 87086; 94761; 99284

== ENCOUNTER 2025-01-11 15:49 | Outpatient (CLI) | payer OTHER, SELFPAY | END 2025-01-11 15:50 | disposition home or self-care (01) | PROVIDERS: Visit Provider Advanced Practice Midwife | DX: Z34.93 Encounter for supervision of normal pregnancy, unspecified, third trimester (principal); Z3A.30 30 weeks gestation of pregnancy | CPT/HCPCS: 80053; 87086 ==

== ENCOUNTER 2025-01-12 09:33 | Outpatient (CLI) | payer OTHER, SELFPAY ==
--- OUTSIDE RECORDS SUMMARY | 2024-04-14 04:30 | XMS_ITS ---
Author Organization [facility] e Address [address] [place] [address] Care Team Providers Care Insect Control Aide Name Role Phone None, No PCP Primary Care Provider Julianne Fink Unavailable [phone] REASON FOR VISIT LMP: 02/18 Encounters Encounter Location Date Provider Diagnosis [facility] [address] [place] [address] 04/14/2024 Julianne Burnette Plan Of Treatment No Information Progress Notes * Linnea KEYDOB: 3 (34 yo F)Acc No.[id number]:04/14/2024 Patient: Linnea OLIVAS Provider: Marine Burnette CNM :1990 A ge:33 Y S ex:Female Date:04/14/2024 Address:[address] [place], [place] [id number] Pcp:No PCP None Subjective: * Chief Complaints: * 1 . LMP: 02/18. * Medical History: Objective: * Vitals: Assessment: Plan: * Treatment: * Images: Billing Information: * Visit Code: * Procedure Codes: * Electronic signature of Chelsea Burnette CNM on 01/12/2025 at 09:37 AM CDT Sign off status: Pending * Provider: Marine Burnette CNM Date: 06/14/2023 Generated for Printi ng/Faxing/eTransmitting on: 0 01/12/2025 09:37 AM CDT
--- OUTSIDE RECORDS SUMMARY | 2024-04-14 05:00 | XMS_ITS ---
Author Organization [place] [facility] e Address [address] [place] [address] Care Team Providers Care Documentation Analyst Name Role Phone None, No PCP Primary Care Provider Julianne Fink Unavailable [phone] Encounters Encounter Location Date Provider Diagnosis [facility] [address] [place] [address] 04/14/2024 Julianne Burnette Plan Of Treatment No Information Progress Notes * Linnea KEYDOB: 3 (34 yo F)Acc No.[id number]:04/14/2024 Patient: Linnea OLIVAS Provider: Marine Burnette CNM :1990 A ge:33 Y S ex:Female Date:04/14/2024 Address:[address] [place], [place] [phone] Pcp:No PCP None Subjective: * Chief Complaints: * * Medical History: Objective: * Vitals: Assessment: Plan: * Treatment: Care Plan: * Problems: * Images: Billing Information: * Visit Code: * Procedure Codes: * Electronic signature of Chelsea Burnette CNM on 01/12/2025 at 09:37 AM CDT Sign off status: Pending * Provider: Marine Burnette CNM Date: 06/14/2023 Generated for Igori ng/Faxing/eTransmitting on: 0 01/12/2025 09:37 AM CDT
--- OUTSIDE RECORDS SUMMARY | 2024-04-14 05:30 | XMS_ITS ---
Author Organization [facility] e Address [address] [place] [address] Care Team Providers Care Refurbish Technician Name Role Phone None, No PCP Primary Care Provider Julianne Fink Unavailable [phone] REASON FOR VISIT LMP: 02/18 Encounters Encounter Location Date Provider Diagnosis [facility] [address] [place] [address] 04/14/2024 Julianne Burnette Plan Of Treatment No Information Progress Notes * Linnea KEYDOB: 3 (34 yo F)Acc No.[id number]:04/14/2024 Patient: Linnea OLIVAS Provider: Marine Burnette CNM :1990 A ge:33 Y S ex:Female Date:04/14/2024 Address:[address] [place], [place] [phone] Pcp:No PCP None Subjective: * Chief Complaints: * 1 . LMP: 02/18. * Medical History: Objective: * Vitals: Assessment: Plan: * Treatment: * Images: Billing Information: * Visit Code: * Procedure Codes: * Electronic signature of Chelsea Burnette CNM on 01/12/2025 at 09:36 AM CDT Sign off status: Pending * Provider: Marine Burnette CNM Date: 06/14/2023 Generated for Printi ng/Faxing/eTransmitting on: 0 01/12/2025 09:36 AM CDT
[2025-01-12] VITALS (11 sets, daily range): BP systolic 101–116; BP diastolic 67–81; PULSE 69–84; RESP 18–20; TEMP 36.4–36.6; O2SAT 97–99; BMI 31.5
--- OUTSIDE RECORDS SUMMARY | 2025-01-12 09:37 | XMS_ITS | Encounter Summary ---
Author Organization [facility] Address [address] [address] Care Team Providers Care Accounting Reconciliation Clerk Name Role Phone Kourtney Kowalski MD Primary Care Provider [phone] Encounter Details Date Type Department Care Team (Late st Contact Info) Description 05/02/2015 Correspondence [address] [place] [address] Nedra Patel, BIG DATA ADMIN, ROAD PACKER OPERATOR [address] [place] [address] [place] [address] FMLA Social History Tobacco Use Types Packs/Day [...] on filedocumented in this encounter Care Teams Accounting Reconciliation Clerk Relationship Specialty Start Date End Date Kourtney Kowalski MD [address] [place] [address] [place] [address] PCP - General Family Practice 08/31/14 documented as of this encounter
--- OUTSIDE RECORDS SUMMARY | 2025-01-12 09:37 | XMS_ITS | Patient Health Record ---
Author Organization [facility] [employer] [facility] [employer] [facility] Address [address] [place] [address] Care Team Providers Care Credit Control Assistant Name Role Phone None, No PCP Primary Care Provider Radha Ag Unavailable [phone] Julianne Burnette Unavailable [phone] Reason For Referral No Information Plan Of Treatment No Information Insurance Providers Payer Name Payer Address Payer Phone Subscriber Number Group Number Insured Name Patient Relationship to Insured Coverage Start Date Coverage End Date [employer] (INS BILL) [address] [address] [place] [address] [id number] Linnea Key Self - patient is the insured
--- OUTSIDE RECORDS SUMMARY | 2025-01-12 09:37 | XMS_ITS | Clinical Summary ---
Author Organization [facility] Address [address] [place] [address] Care Team Providers Care Rougher For Cement Name Role Phone No Ref-Primary, Physician Primary Care Provider Abiodun Arambula MD Unavailable [phone] Florentin Ochoa MD Unavailable [phone] Allergies No known active allergies Medications SUMAtriptan [...] on file Legal Sex Female 8:08 PM MANAGER SOFTWARE Gender Identity Not on file Sexual Orientation Not on file Last Filed Vital Signs Vital Sign Reading Time Taken Comments Blood Pressure 124/74 04/21/2024 7:45 PM MANAGER SOFTWARE Pulse 71 04/21/2024 7:45 PM MANAGER SOFTWARE Temperature 36.3 C (97.4 F) 04/21/2024 6:39 PM MANAGER SOFTWARE Respiratory Rate 18 04/21/2024 6:39 PM MANAGER SOFTWARE Oxygen Saturation 99% 04/21/2024 7:45 PM MANAGER SOFTWARE Inhaled Oxygen Concentration - - Weight 69.4 kg (153 lb) 04/07/2024 2:22 PM MANAGER SOFTWARE Height 157.5 cm (5' 2) 04/07/2024 2:22 PM MANAGER SOFTWARE Body Mass Index 27.98 04/07/2024 2:22 PM MANAGER SOFTWARE Plan of Treatment Health Maintenance Due Date [...] patient's age to complete this topic Insurance [facility] Advance Directives For more information, please contact: [phone] * Full Code (Latest Code Status on File) Date Activated Date Inactivated Comments 11/03/2019 1:52 AM 11/07/2019 4:08 PM Question Answer Comments Code status determined by: Discussion with kobie nt/legal decision maker Care Teams Rougher For Cement Relationship Specialty Start Date End Date No Ref-Primary, Physician PCP - General 10/23/23 Abiodun Arambula MD [address] [place] [address] Assigned OBGYN Provider 04/16/24 Florentin Ochoa MD [address] [place] [address] self defense instructor 07/22/24
--- OUTSIDE RECORDS SUMMARY | 2025-01-12 09:37 | XMS_ITS | Encounter Summary ---
Author Organization [facility] Address [address] [place] [address] Care Team Providers Care Lead Care Manager Name Role Phone No Ref-Primary, Physician Primary Care Provider Abiodun Arambula MD Unavailable [phone] Florentin Ochoa MD Unavailable [phone] Encounter Details Date Type Department Care Team (Late st Contact Info) Description 04/19/2024 [facility] Medical Advice [facility] [place] [address] [place] [address] Abiodun Arambula MD [address] [place], [place] [id number] Social History Tobacco Use Types Packs/Day Years [...] on file Legal Sex Female 8:08 PM SHOP HAND Gender Identity Not on file Sexual Orientation Not on file documented as of this encounter Miscellaneous Notes * Telephone Encounter - Darline Moon RN - 04/19/2024 1:53 PM CST Please address the my chart message. Re: missed ab. Chaparrita Moon RN HAND documented in this encounter Plan of Treatment Not on file documented as of this encounter Visit Diagnoses Not on filedocumented in this encounter Care Teams Lead Care Manager Relationship Specialty Start Date End Date No Ref-Primary, Physician PCP - General 10/23/23 Abiodun Arambula MD [address] [address] Assigned OBGYN Provider 04/16/24 Florentin Ochoa MD [address] [address] information security officer 07/22/24 documented as of this encounter
--- OUTSIDE RECORDS SUMMARY | 2025-01-12 09:37 | XMS_ITS | Encounter Summary ---
Author Organization [employer] Address [address], [place] [address] Care Team Providers Care Microfilm Mounter Name Role Phone Kourtney Kowalski MD Primary Care Provider [phone] Encounter Details Date Type Department Care Team (Late st Contact Info) Description 08/01/2015 Correspondence [address] [place] [address] Kourtney Kowalski MD [address] [place] [address] [place] [address] FMLA Social History Tobacco Use Types Packs/Day [...] on filedocumented in this encounter Care Teams Microfilm Mounter Relationship Specialty Start Date End Date Kourtney Kowalski MD [address] [place] [address] [place] [address] PCP - General Family Practice 08/31/14 documented as of this encounter
--- OUTSIDE RECORDS SUMMARY | 2025-01-12 09:37 | XMS_ITS | Clinical Summary ---
Author Organization [facility] Address [address], [place] [address] Care Team Providers Care Retail Shift Manager Name Role Phone Kourtney Kowalski MD Primary Care Provider Source Comments You are receiving this document as you are listed as the primary care provider,follow-up provider, or the patient has been referred to you for consultation.This is in compliance with the Medicare andSelect Medical [facility] Hospital[facility]or EHR Incentive Program,which states Providers who transition their patient to another setting of careor provider of care or refers their patient to another provider of care shouldprovide summary care record for each transition of care or referral. irisnote Allergies No known active allergies Medications lamoTRIgine [...] follow Assessment & Plan (05/16/2015 10:06 AM COAL WEIGHER): CNM at Service Route. 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 Not on file Not on file Last Filed Vital Signs Vital Sign Reading Time Taken Comments Blood Pressure 96/72 05/13/2017 5:18 PM COAL WEIGHER Pulse 96 05/13/2017 5:18 PM COAL WEIGHER Temperature 36.6 C (97.8 F) 08/12/2023 5:48 PM CDT Respiratory Rate 16 05/13/2017 5:18 PM COAL WEIGHER Oxygen Saturation 100% 04/13/2016 12:23 PM COAL WEIGHER Inhaled Oxygen Concentration - - Weight 63.5 [...] screening HIV ANTIBODY Routine 05/16/2015 9:10 AM COAL WEIGHER Encounter for supervision of other normal in first trimester from Last 3 Months or Most Recently Relevant to Health Maintenance Results * Pap Test, Routine (09/05/2016 9:12 AM CDT) Cytology, Pap (NOTE) Procurement Representative Cytology Report Patient Name: BAUTISTA KEY Taken: 09/05/2016 Received: 09/05/2016 Reported: 09/16/2016 Physician(s): JESUS CARBONE Source of Specimen Pap Test, Routine Cervical/Endocervi herber: Specimen Adequacy Satisfactory for evaluation. Endocervical component present. Final Cytologic Interpretation/Res ult NEGATIVE FOR INTRAEPITHELIAL LESION OR MALIGNANCY (NILM) Other Cytologic Findings Shift in rodney suggestive of bacterial vaginosis *Electronically Signed Out By ROMEO Knowles (ASCP)* Shannan MARS(ASCP) Lorenza Wang [facility] (ASCP) Pap Smear History Date of Last Menstrual Period: Injection Microscopic Description Microscopic examination is performed. [facility] Department of Pathology [address] [place] [address] [facility] 09/05/2016 9:12 AM CDT 09/05/2016 12:00 PM CDT us Jesus Carbone MD LAB_1 Final Resu lt [facility] [phone] * HIV ANTIBODY (05/16/2015 9:10 AM COAL WEIGHER) HIV 1/2 Antibody Negative (Non Reactive) NEGNR [facility] Comment: HIV Antibody testing may be falsely negative during the window period. If the patient has had recent exposure (within the past four weeks), consider contacting Infectious Diseases for clarification. 05/16/2015 9:10 AM COAL WEIGHER 05/16/2015 9:13 AM COAL WEIGHER Narrative [facility] - 05/17/2015 9:51 AM COAL WEIGHER Performed at [facility] [place] [facility], [address] [place] [address] Carisa Bautista APRN, CNM LAB_1 Final Res ult Performing Organization Address City/[facility] Co de Phone Number [facility] [phone] from Last 3 Months or Most Recently Relevant to Health Maintenance Insurance [employer] Care Teams Retail Shift Manager Relationship Specialty Start [place] [address] [place] [address] [place] [address] PCP - General Family Practice 08/31/14
--- OUTSIDE RECORDS SUMMARY | 2025-01-12 09:37 | XMS_ITS | Encounter Summary ---
Author Organization [facility] Address [address] [place] [address] Care Team Providers Care Aircraft Launch And Recovery Technician Name Role Phone Kourtney Kowalski MD Primary Care Provider [phone] Encounter Details Date Type Department Care Team (Late st Contact Info) Description 10/18/2015 Correspondence External to External, [place] [address] RX DRUG REQUEST DENIED Social History Tobacco [...] on filedocumented in this encounter Care Teams Aircraft Launch And Recovery Technician Relationship Specialty Start Date End Date Kourtney Kowalski MD [address] [place] [address] [place] [address] PCP - General Family Practice 08/31/14 documented as of this encounter
--- OUTSIDE RECORDS SUMMARY | 2025-01-12 09:37 | XMS_ITS | Encounter Summary ---
Author Organization [employer] Address [address] [place] [address] Care Team Providers Care Python Consultant Name Role Phone Kourtney Koawlski MD Primary Care Provider [phone] Encounter Details Date Type Department Care Team [...] on filedocumented in this encounter Care Teams Python Consultant Relationship Specialty Start Date End Date Kourtney Kowalski MD [address] [place] [address] [place] [address] PCP - General Family Practice 08/31/14 documented as of this encounter
--- OUTSIDE RECORDS SUMMARY | 2025-01-12 09:37 | XMS_ITS | Encounter Summary ---
Author Organization [facility] Address [address] [place] [address] Care Team Providers Care Field Pipelines Supervisor Name Role Phone No Ref-Primary, Physician Primary Care Provider Abiodun Arambula MD Unavailable [phone] Florentin Ochoa MD Unavailable [phone] Reason for Visit * Reason Onset Date Comments Results 04/08/2024 Encounter Details Date Type Department Care Team (Late st Contact Info) Description 04/08/2024 [facility] Medical Advice [facility] [address] [place] [address] Abiodun Arambula MD [address] [place] [address] Results Social History Tobacco Use Types Packs/Day [...] on file Legal Sex Female 8:08 PM DIESEL DINKEY OPERATOR Gender Identity Not on file Sexual Orientation Not on file documented as of this encounter Miscellaneous Notes * Telephone Encounter - Adamaris Ruth RN - 04/18/2024 8:[address] Abiodun Arambula not in today. This pt has been following a MAB with ultrasound and wants to proceed with taking the cytotec. Per his result note she can proceed. TERRY BalbuenaN [place] blood tester EL DINKEY OPERATOR EL DINKEY OPERATOR * Telephone Encounter - Darline Moon RN - 04/11/2024 8:08 AM CST Pt advised via my chart. S. TERRY Moon EL DINKEY OPERATOR * Telephone Encounter - Darline Moon RN - 04/11/2024 8:07 AM CST Images from the original note were not included. Abiodun Arambula MD [facility] Forest Supervisor Triage; Adamaris Ruth RNYe (7:11 AM) DB See other note. Orders have been placed for cytotec and a follow up US this Thursday. Thanks EL DINKEY OPERATOR * Telephone Encounter - Adamaris Ruth RN - 04/08/2024 8:11 AM CST Pt desires medication to induce miscarriage if she doesn't bleed on her own next week. Okay to send? Or do you prefer she have any further U/s or HCG? She is fine with or without doing another one. Adamaris Amin RN BSN [place] blood tester EL DINKEY OPERATOR documented in this encounter Plan of Treatment Not on file documented as of this encounter Visit Diagnoses Not on filedocumented in this encounter Care Teams Field Pipelines Supervisor Relationship Specialty Start Date End Date No Ref-Primary, Physician PCP - General 10/23/23 Abiodun Arambula MD [address] [address] Assigned OBGYN Provider 04/16/24 Florentin Ochoa MD [address] [facility] [address] [place] [address] card lacer 07/22/24 documented as of this encounter
--- OUTSIDE RECORDS SUMMARY | 2025-01-12 09:37 | XMS_ITS | Encounter Summary ---
Author Organization [facility] Address [address] [place] [address] Care Team Providers Care Business Continuity Planner Name Role Phone Kourtney Kowalski MD Primary Care Provider [phone] Encounter Details Date Type Department Care Team (Late st Contact Info) Description 04/17/2015 Emergency Room External to [facility], Provider HEMATEMESIS Social History Tobacco Use Types [...] on filedocumented in this encounter Care Teams Business Continuity Planner Relationship Specialty Start Date End Date Kourtney Kowalski MD [address] [place] [address] [place] [id number] PCP - General Family Practice 08/31/14 documented as of this encounter
--- NOTE | 2025-01-12 10:13 | ED_ITS ---
HPI - General Adult General Chief complaint: Urogenital Problems, Female Stated complaint: blood in urine for 4 days now Time Seen by Provider: 01/12/25 10:13 History of Present Illness HPI narrative: Patient presents to the emergency department complaining of blood in her urine x4 days. Patient also endorses lower abdominal cramping. Patient is 30 weeks and covid positive. 34-year-old woman returning to the emergency department with concern of hematuria. Seen in OB Clinic yesterday and then with continued symptoms with directed to the emergency department. Was evaluated by myself in this emergency department 2 days ago. Positive for COVID on home test She has also had persistent right upper back/flank area pain. She acknowledges a family history of kidney stones and is worried about the same. She understands that she has not had an infection in her urine and urinalysis would bear that out but she also notes that she has had a fever of 100.7 and her Ob suspects that she is not keeping up with fluids due to this. She has not been vomiting. No diarrhea noted. Request is for IV fluids. My concern after seeing hematuria with minimal discomfort was possible nephritis of some sort in the setting of COVID. She had follow-up the next day; yesterday labs showed normal white count and BUN of 6 and creatinine 0.5. She is taking Paxlovid as prescribed 2 days ago Related Data Home Medications ?Medication ?Instructions ?Recorded ?Confirmed [id number] 3 fatty no.1 27 1 cap PO DAILY 08/1101/12/25 mg-1 mg-300 mg capsule choline 250 mg tablet 265 mg PO QDAY 08/11/2412/24 doxylamine succinate 25 mg tablet 25 mg PO QHS PRN 01/12/25 (Unisom (doxylamine)) magnesium 200 mg tablet 200 mg PO QDAY 09/07/2412/24 famotidine 20 mg tablet (Pepcid) 20 mg PO QDAY 5 01/12/25 acetaminophen 500 mg tablet 500 mg PO Q6H PRN 01/11/25 01/12/25 (Tylenol Extra Strength) Previous Rx's ?Medication ?Instructions ?Recorded nirmatrelvir 300 mg (150 mg See Rx Instructions PO .CO MPLEX #6 01/10/25 x2)-ritonavir 100 mg tablet,dose tabs pack (Paxlovid) Allergies Allergy/AdvReac Type Severity Reaction Status Date / Time No Known Drug Allergies Allergy Verified 01/12/25 11:58 Review of Systems Status of ROS: Reports: 6 or more systems reviewed and unremarkable except as noted in History and below [facility] Medical History Rash ?R21 - Rash and other nonspecific skin eruption (ICD-10) Anemia ?D64.9 - Anemia, unspecified (ICD-10) Migraines ?G43.909 - Migraine, unspecified, not intractable, without status migrainosus (ICD-10) Family History Other Breast cancer Chronic mental illness Diabetes Heart disease Ovarian cancer Thyroid disease Social History Narrative: SOCIAL HISTORY: 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 Marital status: . Jehovah'S Witness/cultural needs: no. Chemical or radiation exposure: no. Pre- tobacco use: no. Pre- alcohol use: no. Current tobacco use: no. Current alcohol use: no. Recreational drug use: no. Dietary restrictions: no. Blood transfusion acceptable in an emergency: yes. PSYCHOSOCIAL HISTORY: History of depression or currently depressed: Denies. Current or past physical, emotional, or sexual mistreatment: Denies. Problems that will make it hard to make it to appointments: Denies. What is your current living situation?: I presently have a place to live In the past 12 months, utilities in danger of being shut off: no In past 12 months, lack of transportation kept you from medical appts, meetings, work, or getting things needed for daily living: no In the past 12 mos, have been you worried that your food would run out before you had money to buy more?: never true In the past 12 mos, the food you bought just didn't last and you didn't have money to buy more?: never true Smoking Status: Never smoker How often do you have a drink containing alcohol: never How often do you have six or more drinks on one occasion: Never AUDIT-C Alcohol total score: 0 Non-prescribed substance use: denies use How often does anyone, including family, friends and others, physically hurt you : never How often does anyone, including family, friends and others, insult or talk down to you: never How often does anyone, including family, friends and others, threaten you with harm: never How often does anyone, including family, friends and others, scream or curse at you: never Exam Narrative: Exam Narrative: Tearful in describing her concerns. Breathing easily. Is receiving an NST during our conversation and exam. Lungs are clear. Heart in regular rate and rhythm. Abdomen is appropriately gravid soft with mild discomfort to palpation in the low pelvis. She has no pain to percussion of the back on the right in area of discomfort. Congested in the nasopharynx. No significant peripheral edema. Well-perfused. Const: Vital Signs, click to edit/add: Vital Signs - 24 hr 01/12/25 09:52 01/12/25 11:53 01/12/25 11:58 Temperature 98 F Pulse Rate Pulse Rate [Right Pulse Oximeter] 84 Respiratory Rate 18 Blood Pressure Blood Pressure [Ri ght Upper Arm] 116/81 Pulse Oximetry 98 98 99 Oxygen Delivery Me thod Room Air 01/12/25 12:03 01/12/25 12:08 01/12/25 12:13 Temperature Pulse Rate Pulse Rate [Right Pulse Oximeter] Respiratory Rate Blood Pressure Blood Pressure [Ri ght Upper Arm] Pulse Oximetry 98 98 98 Oxygen Delivery Me thod 01/12/25 12:18 01/12/25 12:19 01/12/25 12:20 Temperature 97.6 F Pulse Rate 74 Pulse Rate [Right Pulse Oximeter] Respiratory Rate 20 Blood Pressure 101/67 Blood Pressure [Ri ght Upper Arm] Pulse Oximetry 98 Oxygen Delivery Me thod 01/12/25 12:23 01/12/25 12:28 Temperature Pulse Rate Pulse Rate [Right Pulse Oximeter] Respiratory Rate Blood Pressure Blood Pressure [Ri ght Upper Arm] Pulse Oximetry 97 97 Oxygen Delivery Me thod Documenting provider has reviewed patient's vital signs: yes Course Vital Signs Vital signs: Initial Vital Signs Temperature 98 F 01/12/25 09:52 Temperature Source Temporal Artery Scan 01/12/25 09:52 Pulse Rate 84 01/12/25 09:52 Pulse Rhythm Regular 01/12/25 09:52 Pulse Strength 3+ Normal 01/12/25 09:52 Respiratory Rate 18 01/12/25 09:52 Blood Pressure 116/81 01/12/25 09:52 Blood Pressure Mean 92 01/12/25 09:52 Blood Pressure Position Sitting 01/12/25 09:52 Pulse Oximetry 98 01/12/25 09:52 Oxygen Delivery Method Room Air 01/12/25 09:52 Vital Signs Temperature 98 F 01/12/25 09:52 Pulse Rate 84 01/12/25 09:52 Respiratory Rate 18 01/12/25 09:52 Blood Pressure 116/81 01/12/25 09:52 Pulse Oximetry 98 01/12/25 09:52 Oxygen Delivery Method Room Air 01/12/25 09:52 Temperature 97.6 F 01/12/25 12:20 Pulse Rate 74 01/12/25 12:19 Respiratory Rate 20 01/12/25 12:20 Blood Pressure 101/67 01/12/25 12:19 Pulse Oximetry 97 01/12/25 12:28 Oxygen Delivery Method Room Air 01/12/25 09:52 Medications Administered Medications: Discontinued Medications Generic Name Dose Route Start Last Admin Trade Name Freq PRN Reason Stop Dose Admin Acetaminophen 1,000 mg 01/12/25 11:28 01/12/25 11:39 Acetaminophen 500 Mg Tablet PO 1,000 mg Q6H PRN Administration pain Sodium Chloride 1,000 mls @ 1,000 mls/hr 01/12/25 10:35 01/12/25 11:48 0.9 % Sodium Chloride 1000 Ml IV 01/12/25 11:34 Infused .Q1H ONE Infusion Medical Decision Making MDM Narrative Medical decision making narrative: Certainly could be kidney stone. So far labs have been reassuring with regard renal function, other than hematuria. Fever as described can be explained by COVID I think. She is not demonstrating symptoms of pneumonia otherwise. Recheck labs. Might need to ultrasound which could also expand for renal ultrasound which might indicate presence of kidney stone. Could check jets as well. This might be complicated though by although not terribly late in at this point. Might need to CT image looking for ureteral stone. IV was placed and given normal saline. During NST was noted to be experiencing some palpable contractions and on monitor. With this was transferred to OB for further evaluation. Pending labs including urinalysis at that time. Labs were ultimately reassuring today. Renal function looks good. Hematuria appears to resolved without evidence of infection at this time. I discussed this case with on-call studio operations engineer in charge for further evaluation and workup. Transferred to OB Medical Records Medical records reviewed: Yes I reviewed the patient's medical records Lab Data Lab results reviewed: Yes I reviewed the patient's lab results Labs: Lab Results 01/12/25 01/12/25 Range/Units 10:45 11:10 WBC 7.18 (4.50-11.00) K/uL RBC 4.05 (4.00-5.20) m/uL Hgb 12.1 (12.0-16.0) gm/dL Hct 36.5 (33.0-51.0) % MCV 90 (80-100) fL MCH 30 (26-34) pg MCHC 33 (32-36) gm/dL RDW Coeff of Diamond 13.1 (11.5-15.5) % Plt Count 147 (140-440) K/uL Neut % (Auto) 75.3 H (42.0-72.0) % Lymph % (Auto) 17.5 L (20-44) % [place] % (Auto) 5.7 (0.0-11.0) % Eos % (Auto) 0.7 (0.0-7.0) % Baso % (Auto) 0.1 (0.0-3.0) % Neut # (Auto) 5.40 (1.7-7.0) K/uL Lymph # (Auto) 1.30 (0.90-2.90) K/uL [place] # (Auto) 0.40 (0.00-0.90) K/UL Eos # (Auto) 0.05 (0.00-0.50) K/uL Baso # (Auto) 0.01 (0.00-0.30) K/uL Abs Immat Gran (auto) 0.05 (0.00-0.30) K/uL Imm/Tot Granulo (auto) 0.7 % Sodium 134 L (135-149) mmol/L Potassium 4.2 (3.6-5.1) mmol/L Chloride 107 (96-114) mmol/L Carbon Dioxide 19 L (20-32) mmol/L Anion Gap 8 (7-15) mEq/L BUN 4 L (5-24) mg/dL Creatinine 0.4 L (0.5-1.5) mg/dL Estimated Creat Clear 159.69 Estimated GFR 135 ml/min Glucose 91 (60-115) mg/dL Calcium 9.0 (8.4-10.6) mg/dL Urine Color Yellow (Yellow) Urine Appearance Clear (Clear) Urine pH 7.0 (5.0-8.5) Ur Specific [place] 1.015 (1.000-1.030) Urine Protein Negative (Negative) Urine Glucose (UA) Negative (Negative) Urine Ketones Negative (Negative) Urine Blood Negative (Negative) Urine Nitrite Negative (Negative) Urine Bilirubin Negative (Negative) Urine Urobilinogen 0.2 (0.2-1.0) Ur Leukocyte Esterase Trace A (Negative) Urine RBC 0-2 (0-2) Urine WBC 0-2 (0-5) Ur Squamous Epith Cells None (None-Few) Urine Bacteria Few A (None) Discharge Plan Discharge Clinical Impression: COVID, Hematuria, Uterine contractions during Patient Disposition: Admit to OB Condition: Stable
[2025-01-12 10:51] LABS: Hematocrit 36.5 % (33.0-51.0); Hemoglobin* 12.1 gm/dL (12.0-16.0); Immature Granulocytes Abs Auto 0.05 K/uL (0.00-0.30); Immature Granulocytes Pct Auto 0.7 %; Mean Corpuscular HGB Conc 33 gm/dL (32-36); Mean Corpuscular Hemoglobin 30 pg (26-34); Mean Corpuscular Volume 90 fL (80-100); RDW Coefficient of Variation % 13.1 % (11.5-15.5); Red Blood Count 4.05 m/uL (4.00-5.20); White Blood Count* 7.18 K/uL (4.50-11.00)
[2025-01-12 10:59] LABS: Lymphocytes Absolute Auto 1.30 K/uL (0.90-2.90); Slide Review Reflex No
[2025-01-12 11:07] LABS: Chloride* 107 mmol/L (96-114); Sodium* 134 mmol/L (135-149)
[2025-01-12 11:08] LABS: Potassium* 4.2 mmol/L (3.6-5.1)
[2025-01-12 11:10] LABS: Blood Urea Nitrogen* 4 mg/dL (5-24); Creatinine* 0.4 mg/dL (0.5-1.5); Est. Creatinine Clearance* 159.69; Estimated Glomerular Filt Rate 135 ml/min
[2025-01-12 11:11] LABS: Anion Gap 8 mEq/L (7-15); Calcium* 9.0 mg/dL (8.4-10.6); Carbon Dioxide* 19 mmol/L (20-32); Glucose* 91 mg/dL (60-115)
[2025-01-12 11:33] LABS: Appearance Urine Clear (Clear)
[2025-01-12] MEDS: ACETAMINOPHEN 500 MG TABLET 1000 MG PO (11:39)
--- NOTE | 2025-01-12 13:36 | PM.OBLDTN ---
OB - Triage/Final Diagnosis Visit Information Time Seen by Provider: 13:36 Date Seen: 01/12/25 Narrative: The patient is a 34 year old 4 para 1 at 30.2 weeks gestation by LMP, who presents with concern of blood in her urine and positive for Covid. She is also reporting some right upper abdominal pain that sometimes wraps around from the back. She is rating her pain anywhere from 4-6/10 but is not constant pain. She continues to have some fevers most recent was 100.7F she is afebrile here today. Reporting some abdominal cramping and tightening and tender abdomen with palpation. Her mother and other family members are concerned about her having blood in her urine at previous visits. Today her UA is negative for blood and only has trace leukocytes and few bacteria. Her CBC, BUN,Creatinine are reassuring. There does not appear to be any concern with her kidney function or signs of bladder infection today. Vitals are stable. On the monitor she is having contractions that palpate mild about every 3-6 minutes. FHR 135 moderate variability + accelerations, no decelerations. Category 1. She was given 1 liter of fluid and Tylenol for discomfort. After receiving she reports less pain. Reason for evaluation: other Comments/Additional reasons for admission: Assessment: Uterine irritability and dehydration due to Covid infection in Cervical exam to check for dilation was done with informed consent. Cervix is long thick and closed, anterior position. Plan: Reviewed s/s of PTL with patient Encouraged oral hydration at home, continue with Tylenol for discomfort and fevers. Return for evaluation if abdominal pain or tightening increases in intensity or becomes more frequent. Reassured no sign of kidney stone today and no bladder or kidney infection suspected. Pt was comfortable with discharge home at this time. Evaluation Cervical dilation (cm): 0 Cervical effacement (%): 0 Laboratory results: Laboratory Tests 01/12/25 01/12/25 Range/Units 11:10 10:45 WBC 7.18 (4.50-11.00) K/uL RBC 4.05 (4.00-5.20) m/uL Hgb 12.1 (12.0-16.0) gm/dL Hct 36.5 (33.0-51.0) % MCV 90 (80-100) fL MCH 30 (26-34) pg MCHC 33 (32-36) gm/dL RDW Coeff of Diamond 13.1 (11.5-15.5) % Plt Count 147 (140-440) K/uL Neut % (Auto) 75.3 H (42.0-72.0) % Lymph % (Auto) 17.5 L (20-44) % Nolan % (Auto) 5.7 (0.0-11.0) % Eos % (Auto) 0.7 (0.0-7.0) % Baso % (Auto) 0.1 (0.0-3.0) % Neut # (Auto) 5.40 (1.7-7.0) K/uL Lymph # (Auto) 1.30 (0.90-2.90) K/uL Nolan # (Auto) 0.40 (0.00-0.90) K/UL Eos # (Auto) 0.05 (0.00-0.50) K/uL Baso # (Auto) 0.01 (0.00-0.30) K/uL Abs Immat Gran (auto) 0.05 (0.00-0.30) K/uL Imm/Tot Granulo (auto) 0.7 % Sodium 134 L (135-149) mmol/L Potassium 4.2 (3.6-5.1) mmol/L Chloride 107 (96-114) mmol/L Carbon Dioxide 19 L (20-32) mmol/L Anion Gap 8 (7-15) mEq/L BUN 4 L (5-24) mg/dL Creatinine 0.4 L (0.5-1.5) mg/dL Estimated Creat Clear 159.69 Estimated GFR 135 ml/min Glucose 91 (60-115) mg/dL Calcium 9.0 (8.4-10.6) mg/dL Urine Color Yellow (Yellow) Urine Appearance Clear (Clear) Urine pH 7.0 (5.0-8.5) Ur Specific Cunningham 1.015 (1.000-1.030) Urine Protein Negative (Negative) Urine Glucose (UA) Negative (Negative) Urine Ketones Negative (Negative) Urine Blood Negative (Negative) Urine Nitrite Negative (Negative) Urine Bilirubin Negative (Negative) Urine Urobilinogen 0.2 (0.2-1.0) Ur Leukocyte Esterase Trace A (Negative) Urine RBC 0-2 (0-2) Urine WBC 0-2 (0-5) Ur Squamous Epith Cells None (None-Few) Urine Bacteria Few A (None) Vital signs: Vital Signs - 24 hr 01/12/25 09:52 01/12/25 11:53 01/12/25 11:58 Temperature 98 F Pulse Rate Pulse Rate [Right Pulse Oximeter] 84 Respiratory Rate 18 Blood Pressure Blood Pressure [Right Upper Arm] 116/81 Pulse Oximetry 98 98 99 Oxygen Delivery Method Room Air 01/12/25 12:03 01/12/25 12:08 01/12/25 12:13 Temperature Pulse Rate Pulse Rate [Right Pulse Oximeter] Respiratory Rate Blood Pressure Blood Pressure [Right Upper Arm] Pulse Oximetry 98 98 98 Oxygen Delivery Method 01/12/25 12:18 01/12/25 12:19 01/12/25 12:20 Temperature 97.6 F Pulse Rate 74 Pulse Rate [Right Pulse Oximeter] Respiratory Rate 20 Blood Pressure 101/67 Blood Pressure [Right Upper Arm] Pulse Oximetry 98 Oxygen Delivery Method 01/12/25 12:23 01/12/25 12:28 Temperature Pulse Rate Pulse Rate [Right Pulse Oximeter] Respiratory Rate Blood Pressure Blood Pressure [Right Upper Arm] Pulse Oximetry 97 97 Oxygen Delivery Method Comments: Abdomen tender with palpation but soft, mild contractions are palpated. RUQ tender with palpation, LLQ pt winced with palpation. Cervical exam done with informed consent she is long thick and closed, anterior position. Final Diagnosis (1) COVID: Status: Acute (2) Dehydration: Status: Acute (3) Uterine irritability: Status: Acute (4) Uterine contractions during : Status: Acute (5) : Status: Acute
--- NOTE | 2025-01-12 15:30 | PC.OBNST ---
NST Note NST Note Start: 01/12/25 11:15 Freq: ONCE Status: Active Protocol: Document 01/12/25 15:26 VMM (Rec: 01/12/25 15:29 VMM No Response) NST Note 4 Para (# of births) 1 EDC 03/21/25 Gestational Age In 30 Weeks & 2 Days Weeks & Days Patient Presented Contractions/cramping,Headache,Other with Complaint(s) of Other Complaints Patient is COVID positive complaining of blood in the urine. Patient is experiencing cramping. Patient has tenderness in the abdomen, right flank pain and showing symptoms of dehydration. Reactive Yes Appropriate for Yes Gestational Age TERRY Garcia RN Date 01/12/25 Reactive Yes Appropriate for Yes Gestational Age TERRY Porras RN Date 01/12/25 OB NST charge Yes Complete NST Note Yes via Write Note The provider's electronic signature indicates the NST is reactive/appropriate for gestational age. *Note to provider: If an addendum is required, open the patient's chart and click on the note under the Nurse/Allied Health tab.
== END 2025-01-12 14:15 | disposition home or self-care (01) ==
LOC: ED 11:06 → OB OUT 11:08 → OB 11:08
PROVIDERS: Emergency Provider Family Medicine; Visit Provider Advanced Practice Midwife
DX: O47.03 False labor before 37 completed weeks of gestation, third trimester (principal); O98.513 Other viral diseases complicating pregnancy, third trimester; U07.1 COVID-19; Z3A.30 30 weeks gestation of pregnancy
CPT/HCPCS: 36415; 59025; 80048; 81001; 81003; 85025; 99284; G0463; A9270; J7030

== ENCOUNTER 2025-02-18 22:50 | Outpatient (CLI) | payer OTHER, SELFPAY ==
[2025-02-18 23:06] VITALS: BP 123/81; PULSE 100; PULSE 101; PULSE 190; O2SAT 81; O2SAT 96
[2025-02-19] VITALS: TEMP 36.8
--- NOTE | 2025-02-19 01:00 | PC.OBNST ---
NST Note NST Note Start: 02/18/25 22:54 Freq: ONCE Status: Active Protocol: Document 02/19/25 00:59 MANJULA (Rec: 02/19/25 01:00 MANJULA No Response) NST Note 4 Para (# of births) 1 EDC 03/21/25 Gestational Age In 35 Weeks & 5 Days Weeks & Days Patient Presented Contractions/cramping with Complaint(s) of Reactive Yes Appropriate for Yes Gestational Age TERRY Reyes RNC Date 02/19/25 Reactive Yes Appropriate for Yes Gestational Age TERRY Nolen RN Date 02/19/25 OB NST charge Yes Complete NST Note Yes via Write Note The provider's electronic signature indicates the NST is reactive/appropriate for gestational age. *Note to provider: If an addendum is required, open the patient's chart and click on the note under the Nurse/Allied Health tab.
== END 2025-02-19 00:45 | disposition home or self-care (01) ==
LOC: OB OUT 22:50 → OB 22:51
PROVIDERS: Visit Provider Midwife
DX: O47.03 False labor before 37 completed weeks of gestation, third trimester (principal); Z3A.35 35 weeks gestation of pregnancy
CPT/HCPCS: 59025; G0463

== ENCOUNTER 2025-03-01 07:30 | Outpatient (RCR) | payer OTHER, SELFPAY | END 2025-05-05 13:17 | disposition home or self-care (01) | PROVIDERS: Visit Provider Advanced Practice Midwife | DX: N39.3 Stress incontinence (female) (male) (principal); N81.89 Other female genital prolapse; Z34.80 Encounter for supervision of other normal pregnancy, unspecified trimester; Z51.89 Encounter for other specified aftercare | CPT/HCPCS: 87081; 87653; 97110; 97112; 97140; 97161; 97535 ==

== ENCOUNTER 2025-03-14 07:02 | Inpatient (IN) | payer OTHER, SELFPAY ==
[2025-03-14] VITALS (146 sets, daily range): BP systolic 83–146; BP diastolic 46–91; PULSE 65–118; RESP 16–18; TEMP 36.8–37.1; O2SAT 91–100; BMI 34.2
--- NOTE | 2025-03-14 07:19 | W.PM.LDBA ---
Subjective History of Present Illness Narrative: Patient is being admitted to Labor and Delivery for elective IOL. She is a 34 year old at 39 0/7 weeks gestation. Her full history and physical was dictated by Dr. Flor HANCOCK on 03/01/25. Please see this for details. She reports good movement, no vaginal bleeding or LOF. She does think she started to lose her mucous plug a couple of days ago. Seun will be supporting her in labor. Specific Issues/Plans Partner: Seun Daughter is 15yo-Jamee, this is Seun's first. It is another girl H&P: DonnieToyin Aleksander on 03/01/25 # migraines-to try magnesium therapy # Pelvic floor weakness. PT referral placed 11/01. # Neck pain-improved with PT # Sciatic pain. Declines PT referral or chiropractor Imagin08/11/24: Single living intrauterine with sonographic gestational age 8 weeks 0 days and sonographic due date 03/23/2025. 2. Right-sided subchorionic hemorrhage measures 1.1 x 1.2 x 2.3 cm. 11/01/2024: Anatomy US-1)Concordance of clinical and sonographic dating. 2)Normal anatomic survey. OB - Problem Based A/P Additional Plan (1) Supervision of other normal : Status: Acute Plan ASSESSMENT:?? 34 at 39 0/7 weeks gestation?? complicated by:??none Labor type: Induction of labor, not yet in labor ?? Category 1 FHR pattern.??? Labor complicated by: none?? GBS negative? PLAN:?? 1. Routine intrapartum cares as ordered. Initiate misoprostol protocol 2. Monitoring per policy, continuous 3. Planning medicated . Candidate for analgesia of choice.??? 4. Patient encouraged to reposition and ambulate to promote physiologic labor and after initial bedrest after miso placed.?? 5. Anticipate ? OB Result Labs Blood Type: A (+) positive Rubella: immune RPR/VDLR: nonreactive GBS Status: negative HBsAG: negative OB Exam Physical Exam Vital signs: Pulse Ox 97 03/14/25 07:16 Narrative: Vitals Reviewed Constitutional:? Alert and oriented x3 HEENT:? Normocephalic, atraumatic Neck:? Supple Lungs:? Clear to auscultation bilaterally Heart:? Regular rate and rhythm, no murmur, rub or gallop Abdomen:? Soft, nontender, and gravid. Vertex by Rosalio's, confirmed with bedside US Extremities:? No edema or erythema Cervix: 2.5 cm/30%/-3 station/vertex NST: 135 bpm/moderate variability/accelerations present/decelerations absent (Coincidence with MHR verified with maternal pulse)/contractions mild q 7 min
[2025-03-14 10:14] LABS: Hematocrit* 37.0 % (33.0-51.0); Hemoglobin* 12.2 gm/dL (12.0-16.0); Immature Granulocytes Abs Auto 0.06 K/uL (0.00-0.30); Immature Granulocytes Pct Auto 0.7 %; Mean Corpuscular HGB Conc 33 gm/dL (32-36); Mean Corpuscular Hemoglobin 30 pg (26-34); Mean Corpuscular Volume 90 fL (80-100); RDW Coefficient of Variation % 13.8 % (11.5-15.5); Red Blood Count* 4.12 m/uL (4.00-5.20); White Blood Count* 8.11 K/uL (4.50-11.00)
[2025-03-14 10:25] LABS: Lymphocytes Absolute Auto 1.20 K/uL (0.90-2.90); Slide Review Reflex No
[2025-03-14] MEDS: LACTATED RINGERS 1000 ML 1,000 ML 1200 ML IV (14:39)
[2025-03-14] MEDS: LACTATED RINGERS 1000 ML 1,000 ML 125 ML IV ×2 (15:30→17:25)
[2025-03-14] MEDS: ROPIVACAINE 0.2% 100 ml 100 ML 12 MG EPIDURAL (15:31)
[2025-03-14] MEDS: LIDOCAINE 2% (PF) 5 ML VIAL EPIDURAL (15:31)
--- NOTE | 2025-03-14 15:45 | PM.ANBPRC ---
[facility] Medical History Spotting in early ?O26.859 - Spotting complicating , unspecified trimester (ICD-10) Pelvic floor weakness ?N81.89 - Other female genital prolapse (ICD-10) Stress incontinence of urine ?N39.3 - Stress incontinence (female) (male) (ICD-10) Neck pain ?M54.2 - Cervicalgia (ICD-10) Hematuria ?R31.9 - Hematuria, unspecified (ICD-10) Rash ?R21 - Rash and other nonspecific skin eruption (ICD-10) Anemia ?D64.9 - Anemia, unspecified (ICD-10) Migraines ?G43.909 - Migraine, unspecified, not intractable, without status migrainosus (ICD-10) Family History Other Breast cancer Chronic mental illness Diabetes Heart disease Ovarian cancer Thyroid disease Social History Narrative: SOCIAL HISTORY: 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 Marital status: . Advent/cultural needs: no. Chemical or radiation exposure: no. Pre- tobacco use: no. Pre- alcohol use: no. Current tobacco use: no. Current alcohol use: no. Recreational drug use: no. Dietary restrictions: no. Blood transfusion acceptable in an emergency: yes. PSYCHOSOCIAL HISTORY: History of depression or currently depressed: Denies. Current or past physical, emotional, or sexual mistreatment: Denies. Problems that will make it hard to make it to appointments: Denies. What is your current living situation?: I presently have a place to live In the past 12 months, utilities in danger of being shut off: no In past 12 months, lack of transportation kept you from medical appts, meetings, work, or getting things needed for daily living: no In the past 12 mos, have been you worried that your food would run out before you had money to buy more?: never true In the past 12 mos, the food you bought just didn't last and you didn't have money to buy more?: never true Smoking Status: Never smoker How often do you have a drink containing alcohol: never How often do you have six or more drinks on one occasion: Never AUDIT-C Alcohol total score: 0 Non-prescribed substance use: denies use How often does anyone, including family, friends and others, physically hurt you: never How often does anyone, including family, friends and others, insult or talk down to you: never How often does anyone, including family, friends and others, threaten you with harm: never How often does anyone, including family, friends and others, scream or curse at you: never Meds Home Medications and Allergies Home Medications ?Medication ?Instructions ?Recorded ?Confirmed ?Type [id number] 3 fatty no.1 27 1 cap PO DAILY 08/11/24 03/14/25 History mg-1 mg-300 mg capsule choline 250 mg tablet 265 mg PO QDAY 08/11/24 03/08/25 History doxylamine succinate 25 mg tablet 25 mg PO QHS PRN 08/11/24 03/14/25 History (Unisom (doxylamine)) magnesium 200 mg tablet 200 mg PO QDAY 09/07/24 03/14/25 History acetaminophen 500 mg tablet 500 mg PO Q6H PRN 01/11/25 03/14/25 History (Tylenol Extra Strength) omeprazole 20 mg delayed 20 mg PO Q24H 02/08/25 03/14/25 History release,disintegrating tablet calcium carbonate (Tums) 200 mg PO BID 03/01/25 03/14/25 History docusate sodium 100 mg capsule 100 mg PO QDAY 03/01/25 03/14/25 History (Colace) Allergies Allergy/AdvReac Type Severity Reaction Status Date / Time No Known Drug Allergies Allergy Verified 03/08/25 10:15 Results Labs Labs: Laboratory Results - last 24 hr 03/14/25 10:02 WBC 8.11 RBC 4.12 Hgb 12.2 Hct 37.0 MCV 90 MCH 30 MCHC 33 RDW Coeff of Diamond 13.8 Plt Count 138 L Neut % (Auto) 76.9 H Lymph % (Auto) 14.7 L [place] % (Auto) 6.9 Eos % (Auto) 0.6 Baso % (Auto) 0.2 Neut # (Auto) 6.20 Lymph # (Auto) 1.20 [place] # (Auto) 0.60 Eos # (Auto) 0.05 Baso # (Auto) 0.02 Abs Immat Gran (auto) 0.06 Imm/Tot Granulo (auto) 0.7 Blood Type A Positive Antibody Screen NEGATIVE Vital Signs Vital Signs: Last Vital Signs Temp 98.4 F 03/14/25 14:42 Pulse 96 03/14/25 15:44 Resp 16 03/14/25 14:42 BP 105/68 03/14/25 15:44 Pulse Ox 98 03/14/25 15:43 Weight: 84.822 kg Height: 157.48 cm Anesthesia Procedures Epidural Insertion Patient Location: OB Start Time: 15:10 Stop Time: 15:45 Start Date: 03/14/25 Stop Date: 03/14/25 Reason for Block: procedure for pain Patient Position: sitting Performed By: Angi Ngo Preanesthetic Checklist: IV checked, site marked, risks and benefits discussed, monitors and equipment checked, pre-op evaluation, timeout performed and anesthesia consent Prep: chlorhexidine gluconate Monitoring: blood pressure monitoring, continuous pulse oximetry and heart rate Approach: midline Vertebral Space: lumbar (1-5) Epidural Technique: PAOLA saline Needle Type: Tuohy needle Injection Technique: continuous catheter Needle gauge: 17 Needle Length (cm): 10 cm Needle Insertion Depth (cm): 6 Catheter Gauge: 19 Catheter Type: multi-orifice Catheter at skin depth (cm): 16 Test Dose Result: negative and lidocaine 1.5% with epinephrine 1 to 200,000
--- NOTE | 2025-03-14 15:50 | P.OBPN_ITS ---
Subjective Time Seen by Provider: 12:50 Date Seen: 03/14/25 Narrative: Linnea is a 34 yo at 39 0/7 weeks gestation that presented for elective induction of labor. She received 1 dose of cytotec this morning and has been kimberli since then. We discussed another dose of cytotec vs waiting. Objective Exam: Objective: Constitutional: Alert and oriented x3, mild distress, coping well Vital signs stable, see nurse documentation Abdomen: gravid, contractions palpate moderate with contractions and soft between Cervix: 3 cm/60%/-1 station/vertex NST: 130 bpm/ variability/15x15 accelerations/variable decelerat ions/contractions every 2-3 minutes Vital Signs: Last Vital Signs Temp 98.4 F 03/14/25 14:42 Pulse 86 03/14/25 15:49 Resp 16 03/14/25 14:42 BP 117/78 03/14/25 15:49 Pulse Ox 97 03/14/25 15:48 Plan Plan: ASSESSMENT:?? 34 at 39 0/7 weeks gestation?? complicated by:??none Labor type: Induction of labor, not yet in labor ?? Category 2 FHR pattern.??? Labor complicated by: none?? GBS negative? PLAN:?? 1. Routine intrapartum cares as ordered. Initiate misoprostol protocol 2. Monitoring per policy, continuous 3. Planning medicated . Candidate for analgesia of choice.??? 4. Patient encouraged to reposition and ambulate to promote physiologic labor and after initial bedrest after miso placed.?? 5. Anticipate ?
[2025-03-14] MEDS: PHENYLEPHRINE 100 MCG/ML SYRINGE IVP ×7 (16:43→20:20)
[2025-03-14] MEDS: ePHEDrine sulfate 5 MG/ML inj 10 MG IVP (17:30)
[2025-03-14] MEDS: CALCIUM CARBONATE 500 MG CHEW PO (18:28)
[2025-03-14] MEDS: ACETAMINOPHEN 500 MG TABLET 1000 MG PO (20:47)
--- NOTE | 2025-03-14 22:03 | PM.OBPNL ---
Subjective Date Seen: 03/14/25 Narrative: Linnea is a 34 yo at 39 0/7 weeks gestation that presented for elective induction of labor. She received 1 dose of cytotec this morning and has been kimberli since then. She received an epidural for pain management his afternoon and has been comfortable. She is coping well and trying to rest. SVE was performed at 1712 for AROM after epidural. SVE at this time was /-1. Objective Exam: Objective: Constitutional: Alert and oriented x3, no distress, coping well Vital signs stable, see nurse documentation Abdomen: gravid, contractions palpate moderate with contractions and soft between Cervix: 7 cm/90%/0 station/vertex; more cervix present on maternal right NST: 140 bpm/moderate variability/15x15 accelerations/no decelerations/contractions every 1-3 minutes, lasting 60-90 seconds Vital Signs: Last Vital Signs Temp 98.6 F 03/14/25 21:06 Pulse 91 03/14/25 21:51 Resp 16 03/14/25 18:05 BP 102/59 L 03/14/25 21:51 Pulse Ox 97 03/14/25 21:22 Plan Plan: ASSESSMENT:?? 34 at 39 0/7 weeks gestation?? complicated by:??none Labor type: Induction of labor, not yet in labor ?? Category 2 FHR pattern.??? Labor complicated by: none?? GBS negative? PLAN:?? 1. Routine intrapartum cares as ordered. Continue expectant management. AROM for clear fluid with consent at 1712, has made adequate cervical change since. 2. Monitoring per policy, continuous 3. Continue with epidural for pain management. Ok with IV pitocin after delivery. Candidate for analgesia of choice.??? 4. Patient encouraged to reposition to promote physiologic labor. 5. Anticipate ?
[2025-03-14] MEDS: ONDANSETRON 2 MG/ML inj 4 MG IV (22:04)
[2025-03-14] MEDS: OXYTOCIN 30 unit/500 ML in NS 30 UNIT/500 ML BAG 300 UNIT IVPB (23:32)
--- NOTE | 2025-03-14 23:57 | W.PM.OBVAGDE ---
OB Procedure Vag Delivery Mother Details Mother Details: The patient is a 34 year-old, 4, now Para 2, admitted on 03/14/25 at 39 0/7 weeks gestation for elective IOL. : 4 Para: 2 Weeks Gestation: 39.0 Admission Date: 03/14/25 Additional Details Amniotic Membrane Status: AROM Amniotic Membrane Rupture Date: 03/14/25 Amniotic Membrane Rupture Time: 17:11 Amniotic Membrane Fluid Description: Clear Analgesia/Anesthesia Type: Epidural Waterbirth: No Pitcoin: Yes ([facility] only) Intrapartal Events: Labor Induction Induction Method: per misoprostol protocol (x1 dose) and AROM Labor Onset: 17:11 Complete: 23:04 Pushin:14 Heart: heart tones during second stage were reassuring with variables but delivery imminent. Delivery Details Delivery Date: 03/15/25 Delivery Time: 23:21 Route of delivery: Gender: Female Infant Viability: Alive; Heart Rate Present Position at Delivery: OA Delivery Details: Patient was admitted for elective IOL. She received 1 dose of cytotec and then progressed normally. She utilized an epidural for pain management. AROM after epidural at 1711 with clear fluid. Patient was complete at 2304 and pushing at 2314. of a viable female at 2321 in slight left tilt on the bed. Vertex delivered OA. Nuchal cord x1 reduced on the perineum. No shoulder. Body delivered easily and without incident. passed to mothers abdomen with a vigorous cry. Cord was clamped and cut at > 5 minutes. APGARS were 7 at one minute and 9 at five minutes respectively. Mouth was bulb suctioned. Intact placenta with a 3 vessel cord delivered spontaneously at 2332. Fundus firm. 1st degree identified and repaired in typical fashion. QBL 300 cc. Mother and baby stable; mother plans to breastfeed. Infant weight pending. 1 Minute Interval Total Score: 7 5 Minute Interval Total Score: 9 Additional Details Shoulder Dystocia: No Placenta Delivery Time: 23:32 Placental Delivery Description: Spontaneous Delivery repair: Vicryl Procedure Done: Global Blood Loss: 300 Laceration: Perineal - 1st Degree Blood Loss Measurement Type: QBL Bakri Used: No Sponge/Need Count Correct: Yes Cord Vessel Description: 3 Vessels, Nuchal Cord, Loose and Reduced Event Summary Status: Mother and infant were stable after delivery. Disposition: floor
[2025-03-15] VITALS (12 sets, daily range): BP systolic 93–111; BP diastolic 50–69; PULSE 71–89; RESP 18–20; TEMP 36.7–36.9; O2SAT 95–97
[2025-03-15] MEDS: IBUPROFEN 600 MG TABLET PO ×3 (02:08→15:32)
[2025-03-15] MEDS: ACETAMINOPHEN 500 MG TABLET 1000 MG PO (04:30)
[2025-03-15 08:15] LABS: Hemoglobin* 11.1 gm/dL (12.0-16.0)
[2025-03-15] MEDS: DOCUSATE SODIUM 100 MG CAPSULE PO (08:52)
--- NOTE | 2025-03-15 09:00 | P.OBPN_ITS ---
OB - PN:Subj Subjective Date Seen: 03/15/25 Narrative: Linnea is a 34yo seen on PPD1 from [facility]. She had an uncomplicated delivery just prior to midnight with CNM service following elective induction of labor at 39 weeks. Patient is feeling well this morning. She notes she was able to get some rest overnight. Endorse uterine cramping that is bothersome, slightly improved with ibuprofen/Tylenol. Encouraged her to try heat pad. Lochia is moderate. Voiding spontaneously, passing gas. No bowel movement yet. Appetite appropriate, no nausea/vomiting. No fever/chills, chest pain or dyspnea. Linnea notes has been somewhat challenging. She is working on latching, though baby girl is sleepy. She is hand expressing to feed as well. Recommend consult, SBAR given to Kathleen. OB - PN: Obj Exam Physical Exam: Vital signs: Temp Pulse Resp BP Pulse Ox O2 Del Method 98.2 F 79 18 103/68 97 Room Air 03/15/25 04:40 03/15/25 08:54 03/15/25 08:54 03/15/25 08:54 03/15/25 08:54 03/15/25 08:54 Narrative: General: Alert and oriented, no acute distress Psych: Appropriate mood and affect Abdomen: Soft, nondistended. Fundus palpates firm at umbilicus, slightly tender to palpation. Extremities: No significant edema, or calf erythema/tenderness OB - PN: Obj Data Labs Labs: Laboratory Results - last 24 hr 03/14/25 03/15/25 10:02 07:50 WBC 8.11 RBC 4.12 Hgb 12.2 11.1 L Hct 37.0 MCV 90 MCH 30 MCHC 33 RDW Coeff of Diaomnd 13.8 Plt Count 138 L Neut % (Auto) 76.9 H Lymph % (Auto) 14.7 L [place] % (Auto) 6.9 Eos % (Auto) 0.6 Baso % (Auto) 0.2 Neut # (Auto) 6.20 Lymph # (Auto) 1.20 [place] # (Auto) 0.60 Eos # (Auto) 0.05 Baso # (Auto) 0.02 Abs Immat Gran (auto) 0.06 Imm/Tot Granulo (auto) 0.7 Blood Type A Positive Antibody Screen NEGATIVE OB - PN: A/P Delivery Assessment and Plan (1) Supervision of other normal : Status: Acute Plan Linnea is a 34-year-old seen on day 1 following in the setting of elective induction at 39 weeks. Patient is overall feeling well and meeting appropriate milestones. She does note significant uterine cramping, recommend management with ibuprofen, Tylenol and heat pack. Lochia is appropriate, no bowel/bladder concerns. Ambulates without difficulty. Am Hgb 11.1. Linnea is bonding well with baby girl. She notes has been somewhat challenging, where would recommend a consult today. SBAR proided to Kathleen. Anticipate discharge to home tomorrow pending her recovery. All questions answered.
[2025-03-16] VITALS: BP 97/64; PULSE 90; RESP 18; TEMP 36.4; O2SAT 97
[2025-03-16] MEDS: IBUPROFEN 600 MG TABLET PO (03:38)
--- NOTE | 2025-03-16 07:39 | P.DS_ITS ---
DS: Providers Provider Date Seen: 03/16/25 Date of admission: 03/14/25 07:02 Primary care physician: Not a Local Provider Admitting Clinician: Karina Mcintosh CNM Attending Physician on discharge: Yahaira Couch CNM Date of Discharge: 03/16/25 DS: Diagnosis Discharge Diagnosis (1) care following vaginal delivery: Status: Acute (2) Lactating mother: Status: Acute Exam Narrative: Exam Narrative: Constitutional: no apparent distress Respiratory: no labored breathing, lungs sounds clear to auscultation Cardiovascular: regular heart rate and rhythm Abdomen: soft, uterine fundus firm, 1cm below umbilicus. Appropriate for this stage of healing Perineum: perineal tear well approximated, mild swelling, no bruising, no bleeding from site, no redness Mood: calm, cooperative Const: Vital Signs, click to edit/add: Vital Signs - 24 hr 03/15/25 08:54 03/15/25 12:42 03/15/25 15:34 Temperature 98.0 F Pulse Rate [Pulse Oximeter] 79 80 75 Respiratory Rate 18 18 20 Blood Pressure [Ri ght Arm] 103/68 95/61 101/69 Pulse Oximetry 97 95 97 Oxygen Delivery Me thod Room Air Room Air Room Air 03/15/25 21:15 03/16/25 00:00 Temperature 97.6 F Pulse Rate [Pulse Oximeter] 80 90 Respiratory Rate 20 18 Blood Pressure [Ri ght Arm] 107/69 97/64 Pulse Oximetry 97 97 Oxygen Delivery Me thod Room Air Room Air Documenting provider has reviewed patient's vital signs: yes OB - DS: Summary Hospital Course Hospital Course: Linnea is a 34 year old G 4 P 2 at 39 weeks gestation that was admitted to the Center on 03/14/25 for elective induction of labor. She had an uncomplicated vaginal delivery. She delivered a viable female infant. She is breast feeding. the patient has done well. Uterine cramping is really uncomfortable for her. She is using ibuprofen and tylenol. Breasts are getting sore and starting to feel full. Working on sustaining deep latch. Plans to try [employer] for support. She is passing gas and has not yet had a bowel movement, using stool softener. Voiding adequately but says it feels weird, she thinks from recently having a catheter. No vaginal blood clots or excessive bleeding. Will discharge home today. MARYCRUZ Lucio I, Yahaira Couch, STUDENT TEACHING COORDINATOR, CNM, was present for visit and have reviewed and agree with documentation by the Certified Nurse Midwifery Student.? Peripartum Data Infant delivery method: Vaginal Laceration description: Perineal - 1st Degree Episiotomy description: None complications: none [place] Infant Gender: Female Infant Discharge Plan: Home Status at Discharge Functional status at discharge: independent ambulation Overall status at discharge: patient is progressing back to baseline Time Spent with Patient Time attestation: Total time spent providing and/or coordinating discharge services: Time spent: Less than 30 minutes Discharge Plan Discharge Disposition: Home, Self-Care Date of Admission: 03/14/25 07:02 Attending Provider on Discharge: Yahaira Couch Consulting Providers: Karina Mcintosh Primary Care Provider: Provider,Not a Local Condition: Stable Anticipated Discharge Date/Time: 03/16/25 10:00 Discharge Medications: New docusate sodium 100 mg Capsule 100 mg PO DAILY Qty: 100 0RF Rx Instructions: Take 1-2 tablets daily as needed for constipation. ibuprofen 600 mg Tablet 600 mg PO Q6H PRNQty: 60 0RF Continued magnesium 200 mg tablet 200 mg PO QDAY omeprazole 20 mg tablet,disintegrat, delay rel 20 mg PO Q24H [id number] 3 fatty no.1 27-1-300 mg capsule 1 cap PO DAILY choline 250 mg tablet 265 mg PO QDAY acetaminophen [Tylenol Extra Strength] 500 mg tablet 500 mg PO Q6H PRN calcium carbonate [Tums] 200 mg calcium (500 mg) tablet,chewable 200 mg PO BID docusate sodium [Colace] 100 mg capsule 100 mg PO QDAY Discontinued Unisom (doxylamine) 25 mg tablet 25 mg PO QHS PRN Discharge Orders: Discharge Order (Routine); Ordered 03/16/25 Ordered By: Yahaira Couch Patient Education: OB Vaginal/Bottle Feeding, OB Vaginal/Breast Feeding Additional Instructions: Discharge instructions were reviewed with the patient including signs and symptoms of infection and home going medications Nothing vaginally for 6 weeks: no tampons or intercourse Do not drive while taking narcotic pain medication(s) Off Work or School for 8 weeks Symptoms to report to doctor: * Bleeding that saturates more than one pad per hour * Passing clots larger than the size of a golf ball * Pain not relieved by prescribed medication * Fever above 100.4 degrees Fahrenheit * A foul vaginal odor * Difficulty in emotions, mood, and functions * Thoughts of hurting yourself and/or * Painful, reddened area in your breast * Any drainage, redness, or tenderness in your IV/epidural site * Severe headache that doesn't improve after taking medications * Changes in vision, including temporary loss of vision, blurred vision, and/or light sensitivity * Upper abdominal pain (usually under ribs on the right side) * Decrease in urination or painful, frequent urinating * Chest pain * Shortness of breath * Tenderness or pain with redness and/swelling in the calf(s) of your leg 2-week visit: discuss feeding concerns, review control options and screen for anxiety/depression. 6-week visit for an annual exam. consultation services are available to all mothers and babies for the first year after delivery.? To make an appointment, please call [phone]. Activity Level: Activity as Tolerated Discharge Diet: Regular Follow Up Appointments: [facility] [Provider Group] Provider,Not a Local [Primary Care Provider, Family Practice] Forms: [employer] Info Instructions
[2025-03-16] MEDS: DOCUSATE SODIUM 100 MG CAPSULE PO ×2 (09:49→09:50)
== END 2025-03-16 12:06 | disposition home or self-care (01) | DRG 807 ==
PROVIDERS: Obstetrics & Gynecology; Admitting Provider Midwife; Visit Provider Advanced Practice Midwife
DX: O70.0 First degree perineal laceration during delivery (principal); Z37.0 Single live birth
CPT/HCPCS: 01967; 36415; 85018; 85025; 86592; 86850; 86900; 86901; A9270; J2405; J2795; J7120

== ENCOUNTER 2025-03-22 14:00 | Outpatient (CLI) | payer OTHER, SELFPAY ==
--- NOTE | 2025-03-23 08:40 | W.PM.LAC.MC ---
Consult Note - Mom Date of Visit Date of visit: 03/22/25 Reason for consultation: Assistance Needed Visit Code: Visit Patient's Information Phone number: [phone] Para: 2 Allergies No Known Drug Allergies Allergy (Verified 03/08/25 10:15) Mother's Medical History: Medical History (Updated 03/16/25 @ 08:00 by Yahaira Couch CNM) Spotting in early ?O26.859 - Spotting complicating , unspecified trimester (ICD-10) Pelvic floor weakness ?N81.89 - Other female genital prolapse (ICD-10) Stress incontinence of urine ?N39.3 - Stress incontinence (female) (male) (ICD-10) Neck pain ?M54.2 - Cervicalgia (ICD-10) Hematuria ?R31.9 - Hematuria, unspecified (ICD-10) Rash ?R21 - Rash and other nonspecific skin eruption (ICD-10) Anemia ?D64.9 - Anemia, unspecified (ICD-10) Migraines ?G43.909 - Migraine, unspecified, not intractable, without status migrainosus (ICD-10) 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, 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; 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 Delivery Information Delivery type: Vaginal Gestational Age: 39 Gestational Weight For Age: AGA Weight: 3.2 kg Baby's Information Baby's Age at Visit: 8 days Baby's Provider or Clinic: [facility] Jaundice: No Past Experience Past Experience: No Current Frequency of Day Feedings: every 2 hrs Frequency of Night Feedings: every 3 hrs Both Breasts: Yes Suck: strong Latch: with nipple shield Length of Time: 15 min 1st side; 10-15 min 2nd side Goals: no long chain quiller tender plan yet Pumping Pumping: Yes Quantity Pumped: 4 oz 1x/day and gives bottle; after ea fdg and gets 1 oz ea side Baby Elimination Number of Wet Diapers a Day: ea feeding Number of BM a Day: 6-7/day Breast/Nipple Condition Breast Information: Breasts are symmetrical with rounded lower quadrants, intramammary distance is less than 1.5 inches. No erythema. Nipples are supple, everted prior to feeding. RIGHT nipple measures 16mm LEFT nipple measures 18mm Breast Shape: Round Engorgement: No Maternal Nipple Condition - Left: Common Nipple Maternal Nipple Condition - Right: Common Nipple Sore Nipples: Yes Interventions for Sore Nipples: Lansinoh/Nipple Cream Baby Assessment Skin: Normal Tongue/frenulum: Restricted mid-range and History of frenotomy (anterior clipped on 03/20) Palate: Average Lips: Relaxed and Symmetrical Jaw Alignment: Symmetrical Mucosa: [place], moist Onsite Observation Pre-Feed weight: 3.162 kg Post-Feed weight: 3.244 kg Milk Transferred (mL): 82 Position: Cross cradle Attachment/latch-on achieved: With nipple shield (attempted latch on left breast without shield without success) Suck pattern: Suck burst and normal rest Swallow: Audible, consistent and Gulping Behavior following feed: Alert, content Pre-Nursing Left Nipple: Within Normal Limits Pre-Nursing Right Nipple: Within Normal Limits Post-Nursing Left Nipple: Within Normal Limits Post-Nursing Right Nipple: Within Normal Limits Assessments/Interventions Assessments/Interventions: Babe latched? to mom's RIGHT breast, latched with nipple shield and stayed nursing for 15 minutes. Transferred 52 ml of milk Babe then latched to mom's LEFT breast, latched with shield after attempts made without shield but baby wouldn't legal clerk on; and nursed for another 10 minutes. Transferred 30 ml of milk. Babe needed minimal support to stay latched. Discussed continuing to try latching without shield as baby may eventually be able to do so; discussed role of posterior tongue tie related to difficulty latching without shield. Questions answered re: tongue tie, clipping vs lasering and providers for consult if desired. answered questions for mom re: flange size, pumping, storing milk Education provided: Early feeding cues to maximize timing of latching, Asymmetric latch technique for wide/deep latch to increase milk, Transfer for baby and increase comfort for mom, Supply/demand nature of milk supply, Need for frequent stimulation/milk removal, Use of nipple shield, Pumping for milk management and Milk collection, storage Follow-Up Suggested follow up: Appointment as needed Time Spent Time spent with patient (min): 75 Meds Home Medications and Allergies Home Medications ?Medication ?Instructions ?Recorded ?Confirmed ?Type [id number] 3 fatty no.1 27 1 cap PO DAILY 08/11/24 03/14/25 History mg-1 mg-300 mg capsule choline 250 mg tablet 265 mg PO QDAY 08/11/24 03/08/25 History magnesium 200 mg tablet 200 mg PO QDAY 09/07/24 03/14/25 History acetaminophen 500 mg tablet 500 mg PO Q6H PRN 01/11/25 03/14/25 History (Tylenol Extra Strength) omeprazole 20 mg delayed 20 mg PO Q24H 02/08/25 03/14/25 History release,disintegrating tablet calcium carbonate (Tums) 200 mg PO BID 03/01/25 03/14/25 History docusate sodium 100 mg capsule 100 mg PO QDAY 03/01/25 03/14/25 History (Colace) docusate sodium 100 mg capsule 100 mg PO DAILY #100 caps 03/16/25 Rx ibuprofen 600 mg tablet 600 mg PO Q6H PRN #60 tabs 03/16/25 Rx Allergies Allergy/AdvReac Type Severity Reaction Status Date / Time No Known Drug Allergies Allergy Verified 03/08/25 10:15
== END 2025-03-22 14:01 | disposition home or self-care (01) ==
PROVIDERS: Visit Provider Advanced Practice Midwife
DX: Z39.1 Encounter for care and examination of lactating mother (principal)
CPT/HCPCS: G0463

== ENCOUNTER 2025-03-24 11:24 | Outpatient (CLI) | payer OTHER, SELFPAY | END 2025-03-24 11:25 | disposition home or self-care (01) | LOC: FRMREF 11:25 | PROVIDERS: Visit Provider Midwife | DX: R30.0 Dysuria (principal) | CPT/HCPCS: 87086 ==